=== PATIENT | female | born 1960 | race Caucasian/White ===

== ENCOUNTER 2019-10-03 10:37 | Outpatient (CLI) | payer OTHER, MEDICARE, SELFPAY ==
[2019-10-03 10:54] LABS: Basophils Absolute Auto 0.04 K/mm3 (0.00-0.10); Basophils Percent Auto 0.6 % (0.0-1.0); Eosinophils Percent Auto 1.5 % (1.0-6.0); Hemoglobin 15.1 g/dL (12.0-15.0); Immature Granulocyte Absolute 0.02 K/mm3 (0.00-0.00); Immature Granulocyte Percent A 0.3 % (0.0-0.0); Lymphocytes Absolute Auto 1.74 K/mm3 (1.10-4.50); Lymphocytes Percent Auto 26.7 % (18.0-42.0); Mean Corpuscular HGB Conc 33.6 g/dL (32.0-36.0); Mean Corpuscular Hemoglobin 35.3 pg (27.0-31.0); Mean Corpuscular Volume 105.1 fL (78.0-102.0); Mean Platelet Volume 9.3 fl (9.2-11.8); Monocytes Absolute Auto 0.43 K/mm3 (0.10-0.90); Monocytes Percent Auto 6.6 % (2.0-11.0); Neutrophils Absolute Auto 4.2 K/mm3 (1.7-7.2); Neutrophils Percent Auto 64.3 % (50.0-70.0); Platelet Count Result 246 K/mm3 (150-420); Red Blood Count 4.28 M/mm3 (4.20-5.40); Red Cell Distribution Width 13.1 % (11.6-14.4); White Blood Count 6.5 K/mm3 (4.8-10.8)
[2019-10-03 13:35] LABS: Anion Gap 10.7 mmol/L (7-16); Blood Urea Nitrogen 7 mg/dL (7-18); Carbon Dioxide 31 mmol/L (21-32); Chloride 101 mmol/L (98-108); Estimated Glomerular Filt Rate > 60; Glucose 76 mg/dL (70-99); Osmolality Calculated 283 mOsm/kg (285-295); Potassium 4.7 mmol/L (3.5-5.1); Sodium 138 mmol/L (136-145)
[2019-10-03 13:36] LABS: Alanine Aminotransferase 13 U/L (14-59); Alkaline Phosphatase 120 U/L (46-116); Aspartate Amino Transferase 13 U/L (15-37); Bilirubin,Total 0.5 mg/dL (0.00-1.00); Calcium 9.2 mg/dL (8.5-10.1); Cholesterol 189 mg/dL (0-200); HDL Direct 42 mg/dL (40-60); LDL Cholesterol Calculated 110 mg/dL (<130); Thyroid Stimulating Hormone 0.77 uIU/mL (0.36-3.74); Total Protein 7.6 g/dL (6.4-8.2); Triglycerides 183 mg/dL (0-150)
[2019-10-04 11:39] LABS: Add Urine Microscopic? YES; Appearance Urine Clear (Clear); Bilirubin Urine Negative (Negative); Blood Urine Negative (Negative); Color Urine Yellow (Yellow); Glucose Urine UA Negative (Negative); Ketones Urine Negative (Negative); Leukocyte Esterase Ur 1+ (Negative); Nitrate Urine Negative (Negative); Protein Urine Negative (Negative); Specific Grav Ur 1.015 (1.010-1.020); Urobilinogen Urine 0.2 mg/dL (0.2-1.0)
[2019-10-04 11:48] LABS: RBC Urine 0-2 /hpf (0-2)
[2019-10-04 11:49] LABS: Calcium Oxalate Crystals Urine Present /hpf; Squamous Epithelial Cell Urine Rare /hpf (Few)
[2019-10-04 11:50] LABS: Bacteria Urine Trace /hpf
== END 2019-10-03 10:38 | disposition home or self-care (01) ==
PROVIDERS: PCP Internal Medicine; Visit Provider Internal Medicine
DX: E78.5 Hyperlipidemia, unspecified (principal); Z00.00 Encounter for general adult medical examination without abnormal findings
CPT/HCPCS: 36415; 80053; 80061; 81001; 84443; 85025

== ENCOUNTER 2020-02-27 16:16 | Outpatient (CLI) | payer OTHER, MEDICARE, SELFPAY ==
--- NOTE | ~2020-02-27 | XR_ITS ---
EXAMINATION: XR femur LT min 2V DATE: 02/27/2020 17:29 INDICATION: Left hip pain. TECHNIQUE: 2 views of left femur on 4 radiographs were obtained. COMPARISON: None. FINDINGS: Bone alignment is normal. No acute fracture. There is internal fixation of left femoral hea d and neck with 3 lag screws. Left femoral head demonstrates sclerosis and articular surface collapse . There is severe left hip osteoarthritis. Tubing overlies the pelvis. There is a filter in inferior vena cava. IMPRESSION: 1. Old left femoral neck fracture with internal fixation complicated by left femoral head osteonecros is. 2. Severe left hip osteoarthritis. Reviewed, dictated and finalized at location A. IMPRESSION: 1. Old left femoral neck fracture with internal fixation complicated by left fe moral head osteonecrosis. 2. Severe left hip osteoarthritis.
--- NOTE | ~2020-02-27 | XR_ITS ---
EXAMINATION: XR chest 2V DATE: 02/27/2020 17:26 INDICATION: Cough. Dysphagia. TECHNIQUE: Frontal and lateral views of the chest were obtained. COMPARISON: Chest single view 10/30/2016, chest CT 10/22/2016 FINDINGS: Calcified bilateral pulmonary nodules are consistent with old granulomatous disease. There are mild airspace opacities in left lower lung zone. No pleural effusion or pneumothorax. The heart s ize is normal. There is a ventriculoperitoneal shunt on the right. There is internal fixation of left humerus. IMPRESSION: 1. Mild airspace opacities in left lower lung zone, consistent with atelectasis versus pneumonia. Reviewed, dictated and finalized at location A.
--- NOTE | ~2020-02-27 | XR_ITS ---
EXAMINATION: XR femur RT min 2V DATE: 02/27/2020 17:26 INDICATION: Right hip pain. TECHNIQUE: 2 views of right femur on 4 radiographs were obtained. COMPARISON: Right hip radiographs 10/13/2016 FINDINGS: Bone alignment is normal. No acute fracture. There is internal fixation of proximal right f emur with antegrade intramedullary mayda and femoral head/neck screw. There is mild right hip osteoarth ritis. There is mild right knee osteoarthritis. No knee joint effusion. IMPRESSION: 1. Mild polyarticular osteoarthritis. Reviewed, dictated and finalized at location A.
--- NOTE | ~2020-02-27 | XR_ITS ---
EXAMINATION: XR pelvis 1-2V DATE: 02/27/2020 17:26 INDICATION: Bilateral hip pain. TECHNIQUE: An anteroposterior view of the pelvis was obtained. COMPARISON: CT abdomen and pelvis 10/14/2016 FINDINGS: There is an old healed fracture of proximal right femur with internal fixation with antegra de intramedullary mayda and femoral head/neck screw. Right femoral head is enlarged. There is mild righ t hip osteoarthritis. There is internal fixation of left femoral neck with 3 lag screws. Left femoral head demonstrates sclerosis and articular surface collapse, consistent with osteonecrosis. There is severe left hip osteoarthritis. Tubing overlies the pelvis. There is a filter in the inferior vena ca va. Stool distends the rectum. IMPRESSION: 1. Mild right hip osteoarthritis. 2. Osteonecrosis of left femoral head with severe left hip osteoarthritis. 3. Stool distends the rectum. Reviewed, dictated and finalized at location A.
[2020-02-27 16:54] LABS: Basophils Absolute Auto 0.02 K/mm3 (0.00-0.10); Basophils Percent Auto 0.1 % (0.0-1.0); Hemoglobin 15.7 g/dL (12.0-15.0); Immature Granulocyte Absolute 0.09 K/mm3 (0.00-0.00); Immature Granulocyte Percent A 0.6 % (0.0-0.0); Lymphocytes Absolute Auto 0.51 K/mm3 (1.10-4.50); Lymphocytes Percent Auto 3.6 % (18.0-42.0); Mean Corpuscular HGB Conc 33.4 g/dL (32.0-36.0); Mean Corpuscular Hemoglobin 36.4 pg (27.0-31.0); Mean Platelet Volume 10.8 fl (9.2-11.8); Monocytes Absolute Auto 0.75 K/mm3 (0.10-0.90); Monocytes Percent Auto 5.3 % (2.0-11.0); Neutrophils Absolute Auto 12.9 K/mm3 (1.7-7.2); Neutrophils Percent Auto 90.4 % (50.0-70.0); Nucleated Red Blood Cells Absolute Auto 0.07 K/mm3 (0.00-0.00); Nucleated Red Blood Cells Perc 0.5 % (0-0.0); Platelet Count Result 255 K/mm3 (150-420); Red Blood Count 4.31 M/mm3 (4.20-5.40); Red Cell Distribution Width 14.8 % (11.6-14.4); White Blood Count 14.2 K/mm3 (4.8-10.8)
[2020-02-27 17:24] LABS: Alanine Aminotransferase 65 U/L (14-59); Albumin Level 3.8 g/dL (3.4-5.0); Alkaline Phosphatase 102 U/L (46-116); Aspartate Amino Transferase 98 U/L (15-37); Bilirubin,Total 2.2 mg/dL (0.00-1.00); Blood Urea Nitrogen 76 mg/dL (7-18); CRP 2.6 mg/dL (0.0-0.9); Calcium 10.3 mg/dL (8.5-10.1); Carbon Dioxide 26 mmol/L (21-32); Estimated Glomerular Filt Rate 23; Free T3 1.43 pg/mL (2.18-3.98); Free T4 Free Thyroxine 0.78 ng/dL (0.76-1.46); Glucose 149 mg/dL (70-99); Magnesium 2.8 mg/dL (1.8-2.4); Phosphorus 3.6 mg/dL (2.6-4.7); Thyroid Stimulating Hormone 1.93 uIU/mL (0.36-3.74); Total Protein 7.5 g/dL (6.4-8.2)
[2020-02-27 17:25] LABS: Anion Gap 19.7 mmol/L (7-16); Chloride 112 mmol/L (98-108); Osmolality Calculated 343 mOsm/kg (285-295); Potassium 3.7 mmol/L (3.5-5.1); Sodium 154 mmol/L (136-145)
[2020-02-28 10:54] LABS: Add Urine Microscopic? YES; Appearance Urine Clear (Clear); Bilirubin Urine 2+ (Negative); Blood Urine Negative (Negative); Color Urine Amber (Yellow); Glucose Urine UA Negative (Negative); Ketones Urine Trace (Negative); Leukocyte Esterase Ur 2+ (Negative); Nitrate Urine Negative (Negative); Protein Urine 1+ (Negative); pH Urine 5.5 (5.0-8.0)
[2020-02-28 11:01] LABS: Bacteria Urine 1+ /hpf; RBC Urine None seen /hpf (0-2); Squamous Epithelial Cell Urine Few /hpf (Few); WBC Urine 16-20 /hpf (0-3)
== END 2020-02-27 16:17 | disposition home or self-care (01) ==
LOC: CHSLAB 16:19
PROVIDERS: PCP Internal Medicine; Visit Provider Internal Medicine
DX: B37.9 Candidiasis, unspecified (principal); R13.10 Dysphagia, unspecified; R05 Cough; M79.605 Pain in left leg; M79.604 Pain in right leg
CPT/HCPCS: 36415; 71046; 72170; 73552; 80053; 81001; 83735; 84100; 84439; 84443; 84481; 85025; 86140

== ENCOUNTER 2020-02-28 14:32 | Inpatient (IN) | payer OTHER, MEDICARE, SELFPAY ==
--- NOTE | ~2020-02-28 | CT_ITS ---
EXAMINATION: CT chest abdomen pelvis wo con DATE: 02/28/2020 19:59 INDICATION: Shortness of breath. Weakness and nausea. TECHNIQUE: Computed tomography (CT) of the chest, abdomen, and pelvis was performed without intraveno us contrast. Automated exposure control and iterative reconstruction technique were employed. The dos e-length product was 253.78 mGy-cm. COMPARISON: Chest CT 10/22/2016, CT abdomen and pelvis 10/14/2016 FINDINGS: CHEST CT: There is mild emphysema. There are groundglass opacities in anterior segment right upper lobe and per ipheral right middle lobe and right lower lobe. There are patchy groundglass opacities in left upper lobe associated with interstitial opacities. There are airspace and groundglass opacities in lingula. There are groundglass opacities, centrilobular nodules, and tree-in-bud opacities in basilar left lo wer lobe. No pleural effusion. A calcified right lung nodule is consistent with old granulomatous dis ease. The heart size is normal. There are coronary artery calcifications. No pericardial effusion. Th ere is mild mediastinal lymphadenopathy, likely reactive. There is mild chronic anterior wedging of m ultiple thoracic vertebral bodies. ABDOMEN/PELVIS CT: There is diffuse hepatic steatosis. The gallbladder is normal in size and contains high attenuation m aterial that may be sludge or stones. The spleen, pancreas, adrenal glands, and right kidney are norm al. There is a 9 mm hyperdense mass in left kidney. There is no urolithiasis. There is a filter in th e infrarenal inferior vena cava. There is a fusiform aneurysm of infrarenal aorta measuring 3.4 cm. S tool distends the rectum. There is a ventriculoperitoneal shunt with tip in left abdomen. There is tr iman ascites. There are no pathologically enlarged lymph nodes. There is an old healed fracture of rig ht femoral neck with internal fixation. There is an old healed fracture of left femoral neck with int ernal fixation complicated by left femoral head osteonecrosis, articular surface collapse, and severe left hip osteoarthritis. There is a chronic burst fracture of L4. IMPRESSION: 1. Multifocal pneumonia, worst in left lower lobe. 2. Mild emphysema. 3. 3.4 cm fusiform infrarenal aortic aneurysm. 4. Diffuse hepatic steatosis. 5. Stool distends the rectum. 6. 9 mm hyperdense mass in left kidney, which may be a hemorrhagic cyst or less likely a solid neopla sm. Consider abdomen CT without and with contrast in 6 months. Reviewed, dictated and finalized at location A. IMPRESSION: 1. Multifocal pneumonia, worst in left lower lobe. 2. Mild emphysema. 3. 3.4 cm fusiform infrarenal aortic aneurysm. 4. Diffuse hepatic steatosis. 5. Stool distends the rectum. 6. 9 mm hyperdense mass in left kidney, which may be a hemorrhagic cyst or less likely a solid neoplasm. Consider abdomen CT without and with contrast in 6 mo nths.
--- NOTE | ~2020-02-28 | XR_ITS ---
EXAMINATION: XR hip LT 1V INDICATION: Left hip pain TECHNIQUE: A single AP view of the left hip is obtained. COMPARISON: 02/27/2020 FINDINGS: Again seen are three lag screws in the femoral neck. There is osteonecrosis of the femoral head. Severe left hip osteoarthritis is again noted. There is no fracture. Phleboliths are noted in t he pelvis. Catheter tubing coils in the pelvis. An IVC filter is noted. IMPRESSION: 1. Severe left hip osteoarthritis and osteonecrosis of the left femoral head without acute osseous ab normality. Reviewed, dictated and finalized at location A. IMPRESSION: 1. Severe left hip osteoarthritis and osteonecrosis of the left femoral head wi thout acute osseous abnormality.
--- NOTE | ~2020-02-28 | CT_ITS ---
EXAMINATION: CT brain wo con DATE: 02/28/2020 20:00 INDICATION: Cerebral aneurysm. Weakness. TECHNIQUE: Computed tomography (CT) of the head was performed without intravenous contrast. The mA wa s adjusted according to patient size. Iterative reconstruction technique was employed. The dose-lengt h product was 605.33 mGy-cm. COMPARISON: Head CT 10/15/2016 FINDINGS: There is a small old infarct in left cerebellum. There is chronic encephalomalacia in left frontal and temporal lobes and left thalamus. There are areas of chronic encephalomalacia involving r ight frontal lobe, frontoparietal region, left frontal lobe, left parietal lobe, and left occipital l obe. There is a right occipital ventriculostomy catheter with tip in body of right lateral ventricle with chronic encephalomalacia along the catheter tract. 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 There is no intracranial hemorrhage, acute infarction, or abnormal intracranial mass lesion . There is ex vacuo dilatation of the lateral ventricles. There is mucosal thickening in the paranasa l sinuses, worst in right maxillary sinus where there is thickening and sclerosis of the sinus neri, consistent with chronic sinusitis. The orbits are normal. There is a trace left mastoid effusion. Th ere are changes of left-sided craniotomy with aneurysm clip in left sylvian fissure. IMPRESSION: 1. Multifocal chronic encephalomalacia in the brain. 2. Ventriculostomy tip in right lateral ventricle. Ventricles unchanged in size. Reviewed, dictated and finalized at location A. IMPRESSION: 1. Multifocal chronic encephalomalacia in the brain. 2. Ventriculostomy tip in right lateral ventricle. Ventricles unchanged in size .
--- NOTE | ~2020-02-28 | XR_ITS ---
EXAMINATION: XR chest 1V portable DATE: 03/01/2020 08:40 INDICATION: Shortness of breath. TECHNIQUE: A single frontal view of the chest was obtained. COMPARISON: Chest 2 views 02/27/2020, chest CT 02/28/2020 FINDINGS: The lungs are hyperexpanded with lucencies, consistent with emphysema. There are airspace o pacities at the lung bases. No pleural effusion or pneumothorax. The heart size is normal. A ventricu loperitoneal shunt is noted. There is internal fixation of left humerus. IMPRESSION: 1. Airspace opacities at the lung bases, consistent with atelectasis versus pneumonia. 2. Emphysema. Reviewed, dictated and finalized at location A. IMPRESSION: 1. Airspace opacities at the lung bases, consistent with atelectasis versus pne umonia. 2. Emphysema.
--- NOTE | 2020-02-28 14:38 | ECG_ITS ---
Measurements Intervals [place] Rate: 82 P: 78 NH: 117 QRS: -43 QRSD: 94 T: -57 QT: 394 QTc: 461 Interpretive Statements SINUS RHYTHM WITH SHORT [place] INTERVAL LEFT AXIS DEVIATION LEFT VENTRICULAR HYPERTROPHY AND ST-T CHANGE BORDERLINE T WAVE ABNORMALITY- DIFFUSE LEADS BORDERLINE ECG Electronically Signed On 03-01-2020 7:43:14 CDT by Eyad Shelton D.O.
[2020-02-28 14:45] VITALS: BP 115/78; PULSE 106; RESP 16; TEMP 36.9; O2SAT 95
[2020-02-28 15:00] VITALS: RESP 18
--- NOTE | 2020-02-28 15:10 | PC.NURSE ---
BANANA BAG IV ORDERED BY ERP, VERBALIZED HE WOULD LIKE IT AT BOLUS RATE, MISENTERED RATE. VIDYA ESPINOZA PRESENT. THIS RN AGAIN CONFIRMED ERP WANTS BANANA BAG AT BOLUS RATED 999 ML/HR.
--- NOTE | 2020-02-28 15:12 | PC.NURSE ---
FOLIC ACID IVJ NOT AVAILABLE IN ED FOR BANANA BAG ORDER. ERP MADE AWARE. 1 MG FOLIC ACID PO THEN ORDERED BY ERP. MELISSA, INSTRUCTOR BALLROOM DANCING, NOTIFIED (NEEDED FROM PHARMACY). IN ADDITION, RN CONFIRMED THAT ERP DOES NOT WANT MAGNESIUM IN BANANA BAG DUE TO HYPERMAGNESIA LAB VALUE ON 02/27/20, ERP CONFIRMED HE DOES NOT WANT MAGNESIUM IN BANANA BAG.
[2020-02-28] MEDS: FOLIC ACID 1 MG TABLET PO (15:20)
[2020-02-28] MEDS: SODIUM CHLORIDE 0.9% IV 1,000 ML 999 ML IV CONT (15:51)
[2020-02-28 15:52] LABS: Hematocrit 35.9 % (35.0-49.0); Hemoglobin 11.6 g/dL (12.0-15.0); Mean Corpuscular HGB Conc 32.3 g/dL (32.0-36.0); Mean Corpuscular Hemoglobin 36.3 pg (27.0-31.0); Mean Corpuscular Volume 112.2 fL (78.0-102.0); Mean Platelet Volume 10.9 fl (9.2-11.8); Platelet Count Result 156 K/mm3 (150-420); White Blood Count 9.4 K/mm3 (4.8-10.8)
[2020-02-28 16:08] LABS: BNP 110 pg/mL (0-100)
[2020-02-28 16:09] LABS: Alanine Aminotransferase 48 U/L (14-59); Albumin Level 2.4 g/dL (3.4-5.0); Alkaline Phosphatase 74 U/L (46-116); Anion Gap 13.2 mmol/L (7-16); Aspartate Amino Transferase 76 U/L (15-37); Bilirubin,Total 1.5 mg/dL (0.00-1.00); Blood Urea Nitrogen 77 mg/dL (7-18); CRP 4.5 mg/dL (0.0-0.9); Calcium 8.3 mg/dL (8.5-10.1); Carbon Dioxide 25 mmol/L (21-32); Chloride 118 mmol/L (98-108); Creatine Kinase 50 U/L (26-192); Estimated CRCL calculation 13 ml/min; Estimated Glomerular Filt Rate 25; Lipase 300 U/L (73-393); Magnesium 2.5 mg/dL (1.8-2.4); Phosphorus 3.3 mg/dL (2.6-4.7); Potassium 3.2 mmol/L (3.5-5.1); Sodium 153 mmol/L (136-145); Total Protein 5.6 g/dL (6.4-8.2)
[2020-02-28 16:12] LABS: Ammonia < 10 umol/L (11-32); Glucose 577 mg/dL (70-99); Osmolality Calculated 366 mOsm/kg (285-295)
[2020-02-28 16:14] LABS: Troponin I 0.11 ng/mL (0.00-0.056)
[2020-02-28 16:24] LABS: Influenza Control Valid (Valid)
[2020-02-28 16:36] LABS: INR 1.4; Partial Thromboplastin Time 24.7 SEC (22.3-31.6); Prothrombin Time 14.1 Seconds (9.64-11.0)
[2020-02-28 16:43] LABS: Salicylate 4.3 mg/dL (2.8-20.0)
[2020-02-28 16:44] LABS: Erythrocyte Sedimentation Rate 20 mm/hr (0-20)
[2020-02-28 16:45] LABS: Acetaminophen 0 ug/mL (10-30); Ethanol < 3 mg/dL (0-6)
[2020-02-28 16:53] LABS: Thyroid Stimulating Hormone 0.84 uIU/mL (0.36-3.74)
[2020-02-28 17:24] LABS: Add Urine Microscopic? YES; Appearance Urine Sl Cloudy (Clear); Bilirubin Urine 1+ (Negative); Blood Urine Negative (Negative); Color Urine Yellow (Yellow); Glucose Urine UA 2+ (Negative); Ketones Urine Trace (Negative); Leukocyte Esterase Ur Negative LEU/UL (Negative); Nitrate Urine Negative (Negative); Protein Urine Trace (Negative); pH Urine 5.5 (5.0-8.0)
[2020-02-28] MEDS: KCL 20 MEQ/SW 100 ML 100 ML 50 MEQ IVPB (17:47)
--- NOTE | 2020-02-28 18:10 | ED.GENADULT ---
HPI - General Adult General Chief complaint: Recheck/Abnormal Lab/Rx Stated complaint: 59 Yo Female w/ recent h/o FTT w/ weight loss was seen in clinic by Dr Gonzalez on 02/26. He ordered bloodwork and initiated outpt w/u on pt for FTT and Weight loss w/ poor appetite. Upon receiving results of bloodwork he instructed patient to come into ED for eval. Patient is a poor historian who doesn't offer much in terms of history. Her states she has not been eating for 1-2 months and admits she has likely been pocketing her foot. Patient w/ a known h.o SAH approx 10 years ago also suffers from Arthritis of her hips. Related Data Home Medications Medication Instructions Recorded Confirmed fluconazole 100 mg PO DAILY 02/28/20 02/28/20 Allergies Allergy/AdvReac Type Severity Reaction Status Date / Time morphine Allergy Unknown Verified 10/13/16 19:33 Review of Systems Review of Systems: ROS unobtainable: Yes unobtainable due to mental status Constitutional: Constitutional: Reports no additional constitutional complaints Eyes: Eyes: Reports as per HPI ENT: Reports system reviewed and no additional complaints, except as documented Cardiovascular: Cardiovascular: Reports no additional cardiovascular complaints Respiratory: Respiratory: Reports no additional respiratory complaints Gastrointestinal: Gastrointestinal: Reports no additional gastrointestinal complaints Genitourinary: Genitourinary: Reports no additional female genitourinary complaints Musculoskeletal: Musculoskeletal: Reports no additional musculoskeletal complaints Integumentary/Breasts: Skin/Breast: Reports system reviewed and no additional complaints, except as docu Neurologic: Reports system reviewed and no additional complaints, except as documented Psychiatric: Psychiatric: Reports no additional psychiatric complaints Endocrine: Endocrine: Reports no additional endocrine complaints Hematologic/Lymphatic: Hematologic/Lymphatic: Reports no additional hematologic/lymphatic complaints [facility] Past Medical History Medical History (Updated 02/28/20 @ 21:17 by Johan Stafford MD) Aneurysm of anterior cerebral artery Intracranial aneurysm Intracranial hemorrhage of aneurysm Surgical History Surgical History (Updated 02/28/20 @ 18:22 by Johan Stafford MD) Intracranial hemorrhage, spontaneous subarachnoid, due to cerebral aneurysm, remote, resolved Exam Const: General: no acute distress, alert and ill appearing Nutritional Appearance: thin (cachetic) HENMT: Head: normal to inspection Mouth: Yes dry mucous membranes and Yes Abnormal oral and palatal mucosa present (thrush) white patches Other: sunken orbits Eyes: Conjunctivae: conjunctivae normal Pupils: Equal, round and reactive pupils present Neck: Neck: normal visual inspection Chest: Chest palpation & inspection: normal inspection of the chest Resp: Effort & Inspection: normal respiratory effort Cardio: Rate: regular rate Rhythm: regular rhythm GI: GI Palp: Yes Soft to palpation, No Tenderness to palpation present (GI) and No Guarding due to palpation present (GI) : General: Yes no CVA tenderness Skin: General skin exam: normal color Neuro: General: patient oriented x3, moves all extremities, no focal motor deficits and CN's II-XI intact bilaterally Extrem: General: normal to inspection Psych: Affect: Sad affect present Course Course Emergency Course: Unable to PanCT w/ contrast sec to low GFR (Which is improving w/ IVF. Will start with PanCT W/O Contrast, admit for FTT, ARF and continue workup inhouse. D/W Dr Gonzalez who agrees with plan. Vital Signs Vital signs: Vital Signs Temperature 98.4 F 02/28/20 14:45 Pulse Rate 106 H 02/28/20 14:45 Respiratory Rate 16 02/28/20 14:45 Blood Pressure 115/78 02/28/20 14:45 Pulse Oximetry 95 02/28/20 14:45 Temperature 98.4 F 02/28/20 14:45 Pulse Rate 106 H 02/28/20 14:45 Respiratory Rate
[2020-02-28 18:16] VITALS: BP 115/78
[2020-02-28 18:16] LABS: Bacteria Urine None seen /hpf; Mucus Urine None seen /lpf; RBC Urine None seen /hpf (0-2); Squamous Epithelial Cell Urine Rare /hpf (Few); WBC Urine None seen /hpf (0-3)
--- NOTE | 2020-02-28 18:23 | PC.NURSE ---
AT 1600 RN INTERMITTENTLY CATHETERIZED PT. SHE HAS BEEN UNABLE TO VOID FOR AT URINE SPECIMINE. PT. TOLERATE WELL AND RN USED AN 8 PORTUGUESE CATHETER DUE TO THE FACT THAT PATIENT IS VERY FRAIL AND SMALL. URINE WAS OBTAINED AND WILL BE SENT TO THE LAB.
[2020-02-28 18:30] VITALS: BP 137/92; PULSE 83; RESP 16; O2SAT 99
[2020-02-28] MEDS: SODIUM CHLORIDE 0.9% IV 1,000 ML 150 ML IV CONT (18:30)
[2020-02-28 19:14] LABS: Anion Gap 15.6 mmol/L (7-16); Blood Urea Nitrogen 66 mg/dL (7-18); Calcium 8.5 mg/dL (8.5-10.1); Carbon Dioxide 19 mmol/L (21-32); Chloride 124 mmol/L (98-108); Estimated CRCL calculation 14 ml/min; Estimated Glomerular Filt Rate 28; Glucose 175 mg/dL (70-99); Osmolality Calculated 343 mOsm/kg (285-295); Potassium 3.6 mmol/L (3.5-5.1); Sodium 155 mmol/L (136-145)
[2020-02-28 19:52] LABS: Amphetamine Screen Urine Negative (Negative); Barbiturate Screen Urine Negative (Negative); Benzodiazepines Screen Urine Negative (Negative); Cannabinoid Screen Urine Positive (Negative); Cocaine Screen Urine Negative (Negative); Methadone Screen Urine Negative (Negative); Opiate Screen Urine Negative (Negative); Phencyclidine Screen Urine Negative (Negative)
[2020-02-28 22:54] VITALS: BP 125/82; PULSE 76; TEMP 36.4
[2020-02-28 23:40] VITALS: BP 125/87; PULSE 80; RESP 18; TEMP 36.5; O2SAT 100
[2020-02-28] MEDS: DEXTROSE 5%/LACTATED RINGERS 1,000 ML 100 ML IV CONT (23:42)
--- NOTE | 2020-02-28 23:45 | ADMGEN ---
This patient, Shawnee Vides, was admitted to 2nd Floor Room 205-2. Patient/family oriented to hospital policies and general routines including ID bracelet, bed and alarms, visiting hours, pain management, procedures, bathroom and other care routines, personal items, smoking policy, room service/diet, and visiting hours. Patient/Family are encouraged to report perceived risks to care and to ask questions if they do not understand what they are told or what they should do.
[2020-02-28 23:47] VITALS: BMI 12.8
--- NOTE | 2020-02-29 00:24 | PC.NURSE ---
Talked to Dr. Stafford about pain medication for pt. Orders received and noted.
[2020-02-29] MEDS: ACETAMINOPHEN/CODEINE ELIX 120-12 MG/5 ML UDC 10 ML PO ×2 (00:27→17:35)
[2020-02-29] MEDS: NICOTINE (*PBKC) 21 MG PATCH 1 PATCH TRANSDERM ×2 (00:45→20:55)
[2020-02-29 05:45] LABS: Hematocrit 34.4 % (35.0-49.0); Hemoglobin 11.1 g/dL (12.0-15.0); Mean Corpuscular HGB Conc 32.3 g/dL (32.0-36.0); Mean Corpuscular Hemoglobin 35.8 pg (27.0-31.0); Mean Platelet Volume 10.9 fl (9.2-11.8); Platelet Count Result 132 K/mm3 (150-420); Red Cell Distribution Width 15.5 % (11.6-14.4)
[2020-02-29 05:59] LABS: INR 1.3; Prothrombin Time 13.2 Seconds (9.64-11.0)
[2020-02-29 06:14] LABS: Alanine Aminotransferase 53 U/L (14-59); Albumin Level 2.2 g/dL (3.4-5.0); Alkaline Phosphatase 68 U/L (46-116); Anion Gap 12.2 mmol/L (7-16); Aspartate Amino Transferase 76 U/L (15-37); Bilirubin,Total 1.4 mg/dL (0.00-1.00); Blood Urea Nitrogen 52 mg/dL (7-18); Calcium 8.1 mg/dL (8.5-10.1); Carbon Dioxide 23 mmol/L (21-32); Chloride 126 mmol/L (98-108); Estimated CRCL calculation 19 ml/min; Estimated Glomerular Filt Rate 36; Glucose 145 mg/dL (70-99); Osmolality Calculated 343 mOsm/kg (285-295); Potassium 3.2 mmol/L (3.5-5.1); Sodium 158 mmol/L (136-145); Total Protein 4.9 g/dL (6.4-8.2)
--- NOTE | 2020-02-29 07:34 | ECG_ITS ---
Measurements Intervals [place] Rate: 67 P: 85 [place]: 113 QRS: -45 QRSD: 98 T: 233 QT: 481 QTc: 511 Interpretive Statements SINUS RHYTHM WITH SINUS ARRHYTHMIA WITH SHORT [place] INTERVAL LEFT AXIS DEVIATION DELAYED PRECORDIAL R/S TRANSITION ST-T WAVE ABNORMALITY IN ANTEROLAT/INF LEADS- CONSIDER ISCHEMIA BASELINE ARTIFACT- I, II, III, AVR, AVL, AVF, V1-V6 ABNORMAL ECG Electronically Signed On 03-01-2020 7:44:55 CDT by Eyad Shelton D.O.
[2020-02-29 07:40] VITALS: BP 123/84; PULSE 67; RESP 18; TEMP 36.8; O2SAT 95
--- NOTE | 2020-02-29 07:50 | PC.NURSE ---
EKG completed, awaiting information from imaging to find out if can proceed with CT scans this am, patient requesting coffee, educated on procedure to be NPO until after scan has been done
[2020-02-29] MEDS: KCL 20 MEQ/SW 100 ML 100 ML 50 MEQ IVPB (08:23)
[2020-02-29] MEDS: DEXTROSE 5%/LACTATED RINGERS 1,000 ML 100 ML IV CONT (09:18)
[2020-02-29] MEDS: DOCUSATE SODIUM 100 MG CAPSULE PO (09:19)
[2020-02-29] MEDS: MEGESTROL ACETATE (*CHEMO) 40 MG TABLET PO ×4 (09:19→20:51)
[2020-02-29] MEDS: ENOXAPARIN 30 MG/0.3 ML SYRINGE SUB-Q (09:19)
--- NOTE | 2020-02-29 09:20 | PC.NURSE ---
Ativan given for anxiety, on the light almost constantly, no t wanting to be left alone, asking for coffee, has 2 cups at the bedside, CT scan cancelled at this time, wants saline lock removed, advised at this time it needs to stay in for use, checked site, no redness and flushes well
--- NOTE | 2020-02-29 09:49 | PC.NURSE ---
Ate only one spoonful of oatmeal, took sips of coffee only and managed to drink about 1/4 of her ensure with encouragement
--- NOTE | 2020-02-29 09:49 | PM.IMHP ---
H&P: HPI History of Present Illness Chief complaint: DR SENT PT FOR ABNORMAL LABS Narrative: Shawnee Vides is a 59 year old female white female that presented to [facility] ED after being notified by her primary care physician Dr. Gonzalez to report to the ED for evaluation due to abnormal labs. patient has a past medical history of aneurysm of anterior cerebral artery, intracranial aneurysm, intercranial hemorrhage of aneurysm, and smoker.According to patient's , for approximately 1 month patient has been pocketing her food or chewing it up and spitting it in a napkin. noted that patient has been having mouth pain in this could be the cause of her decrease in appetite. her also noted that her primary care physician prescribed her Flagyl with their last visit due to thrush. according to patient's they do have plans to consult surgery for a PEG tube placement in the near future. approximately 15 years ago when patient had an aneurysm she had a PEG tube placed that was reversed. He is hoping that they can replace the PEG to assist with her eating and to gain weight. Patient is aphasic due to her intracranial hemorrhage. he also noted that at some point she was on antidepressants for depression and also increased her appetite.. Patient is being admitted for failure to thrive, pneumonia and dehydration. patient's vital signs are 125/87, 80, 18, 97.7, 100% on room air. while in the ED patient's sodium was 153, potassium 3.2, BUN 77, creatinine 2.02, GFR 25 glucose 577 magnesium 2.5 total bilirubin 1.5 AST 76 troponin 0.11 CRP 4.5 her urine had a trace of protein glucose ketones bili and urobilinogen . She did test positive for cannabis HIV negative ,COVID pending. her CT of the abdomen and chest showed pneumonia with mouth emphysema and stool distending the rectum, a 9 mm mass on the left kidneys in the 3.4 cm aortic aneurysm. There was no new findings with a head CT. EKG indicate sinus rhythm with short MN intervals,strep culture pending. Patient denies SOB, CP, palpitation, extremity numbness, lightheadness, dizziness, constipation, diarrhea, chills or fever. patient is extremely anxious because her can't visit her due to her isolation for COVID-19 testing Review of Systems Review of Systems: ROS unobtainable: Yes unobtainable due to mental status PMFSH Past Medical History Medical History (Updated 02/29/20 @ 12:07 by DE Milligan) Aneurysm of anterior cerebral artery Intracranial aneurysm Intracranial hemorrhage of aneurysm Surgical History Surgical History (Updated 02/28/20 @ 18:22 by Johan Stafford MD) Intracranial hemorrhage, spontaneous subarachnoid, due to cerebral aneurysm, remote, resolved Social History Social History Smoking packs per day: 1 Smoking cigarettes per day: 20.0 Years smoked: 41 Smoking pack-years: 41.00 Smoking status: Current every day smoker Tobacco type: cigarettes Alcohol intake: never Substance use type: marijuana Last use: one time Gender identity (if verbalized by the patient): Female Spiritual care concerns: No Meds Home Medications and Allergies Home Medications Medication Instructions Recorded Confirmed Type fluconazole 100 mg PO DAILY 02/28/20 02/28/20 History Allergies Allergy/AdvReac Type Severity Reaction Status Date / Time morphine Allergy Unknown Verified 10/13/16 19:33 Vital Signs Vital Signs - 24 hr 02/28/20 14:45 02/28/20 15:00 02/28/20 18:16 Temperature 98.4 F Pulse Rate 106 H Respiratory Rate 16 18 Blood Pressure 115/78 115/78 Pulse Oximetry 95 02/28/20 18:30 02/28/20 22:54 02/28/20 23:40 Temperature 97.5 F L 97.7 F Pulse Rate 83 76 80 Respiratory Rate 16 18 Blood Pressure 137/92 H 125/82 125/87 Pulse Oximetry 99 100 02/29/20 07:40 Temperature 98.2 F Pulse Rate 67 Respiratory Rate 18 Blood Pressure 123/84 Pu
--- NOTE | 2020-02-29 10:30 | PC.NURSE ---
drowsy from ativan, arouses to voice but falls asleep quickly, mumbles words, fluids infusing, art patent and draining,
[2020-02-29 10:46] LABS: HIV 1 P24 AG Negative (Negative); HIV 1/2 AB Negative (Negative)
[2020-02-29 11:28] VITALS: PULSE 82
[2020-02-29 11:29] VITALS: BP 98/48; PULSE 82; RESP 18; TEMP 36.4; O2SAT 93
[2020-02-29] MEDS: PHARMACIST COMMUNICATION ORDER 1 EACH XX (12:03)
[2020-02-29] MEDS: NYSTATIN 100,000 UNITS/ML SUSP 5 ML ORAL.SUSP PO ×3 (12:04→20:51)
[2020-02-29] MEDS: DULoxetine HCL 20 MG CAPSULE.DR PO (12:04)
--- NOTE | 2020-02-29 12:38 | PC.NURSE ---
frequently on the light asking for coffee, coffee at the bedside, states wants new coffee, advised that coffee is still fresh from lunch and to try to finish it or attempt to drink that one first,
[2020-02-29] MEDS: SODIUM CHLORIDE 0.45% 1,000 ML 100 ML IV CONT (13:29)
--- NOTE | 2020-02-29 13:43 | PC.NURSE ---
top dentures removed and cleaned, oral care provided, dentures put back in, speaking clearer at this time, wants to go out to smoke, advised no smoking campus, wants to see her , advised she cannot see him due to covid test pending
--- NOTE | 2020-02-29 14:00 | PC.NURSE ---
Continues to ring on the light every 10-15 min, wanting a cigarette, wanting to go outside, and sometimes unable to understand what she is trying to say, doesn't want to be left alone, still drowsy and having some comunication issues due to dry mouth and dentures on top not fitting well, advised that she cannot go home due to irregular lab work, she is getting IV fluids to help correct this, educated on no smoking policy and that she has a nicotine patch on, continues to ask the same thing over and over after is has been answered,
--- NOTE | 2020-02-29 14:37 | PC.NURSE ---
Fluids infusing, art draining lakshmi urine, 150ml at this time, takes small sips of fluids as offered, not eating, still using call light frequently
--- NOTE | 2020-02-29 15:00 | PC.NURSE ---
Resting quietly, eyes closed, resp non labored, no change in telemetry, fluids infusing, art draining lakshmi urine
[2020-02-29 15:53] VITALS: BP 123/83; PULSE 80; PULSE 82; RESP 18; TEMP 36.1; O2SAT 93
--- NOTE | 2020-02-29 17:15 | PC.NURSE ---
Awake, took evening pill, ate 1/2 spoonful of mashpotato and stated im done drank 1 sip of ensure, im done will not attempt to eat or drink anything else, closed her eyes
--- NOTE | 2020-02-29 17:49 | PC.NURSE ---
tylenol with codeine given for pain in left hip, asking if she needs to be here, can the saline lock come out, advised that her spouse knows she is here for IVFs to try to get stronger so she can be evaluated for peg tube or feeding tube due to not eating at home and weight loss, advised needs to make an effort to try to eat and drink well here as to go home, still refuses to eat, will take sips of water, coffee and ensure at times
[2020-02-29 19:56] VITALS: PULSE 74
[2020-02-29] MEDS: BUDESONIDE/FORMOTEROL (*SP) 160-4.5 MCG 6 GM INH 2 PUFF INHALATION (20:51)
[2020-02-29] MEDS: SENNA/DOCUSATE SODIUM TABLET 1 TAB PO (20:51)
[2020-02-29] MEDS: MAGNES & ALUM HYD/SIMETH/DIPHENHYD/LIDOCAINE 119 ML MOUTHWASH BY MOUTH (20:54)
[2020-02-29 21:06] LABS: Troponin I 0.17 ng/mL (0.00-0.056)
--- NOTE | 2020-02-29 21:29 | PC.NURSE ---
MD notified that patient's current Troponin Level of 0.17. MD acknowledged with no new orders.
[2020-03-01] VITALS (8 sets, daily range): BP systolic 114–128; BP diastolic 84–86; PULSE 78–108; RESP 16–20; TEMP 36.8–37.1; O2SAT 57–97
[2020-03-01] MEDS: SODIUM CHLORIDE 0.45% 1,000 ML 100 ML IV CONT (00:07)
[2020-03-01] MEDS: ACETAMINOPHEN/CODEINE ELIX 120-12 MG/5 ML UDC 10 ML PO (00:08)
[2020-03-01] MEDS: MAGNES & ALUM HYD/SIMETH/DIPHENHYD/LIDOCAINE 119 ML MOUTHWASH BY MOUTH (05:29)
[2020-03-01] MEDS: BUDESONIDE/FORMOTEROL (*SP) 160-4.5 MCG 6 GM INH 2 PUFF INHALATION (05:30)
[2020-03-01 06:24] LABS: Hematocrit 45.4 % (35.0-49.0); Hemoglobin 14.1 g/dL (12.0-15.0); Immature Platelet Fraction Pct 5.5 % (1.0-7.0); Mean Corpuscular HGB Conc 31.1 g/dL (32.0-36.0); Mean Corpuscular Hemoglobin 35.9 pg (27.0-31.0); Mean Corpuscular Volume 115.5 fL (78.0-102.0); Mean Platelet Volume 11.7 fl (9.2-11.8); Platelet Count Result 145 K/mm3 (150-420); Red Blood Count 3.93 M/mm3 (4.20-5.40); Red Cell Distribution Width 15.9 % (11.6-14.4); White Blood Count 12.2 K/mm3 (4.8-10.8)
[2020-03-01 07:23] LABS: Alanine Aminotransferase 90 U/L (14-59); Albumin Level 2.5 g/dL (3.4-5.0); Alkaline Phosphatase 102 U/L (46-116); Aspartate Amino Transferase 114 U/L (15-37); Bilirubin Direct 0.7 mg/dL (0-0.2); Bilirubin Indirect 0.7 mg/dL (0-1.0); Bilirubin,Total 1.4 mg/dL (0.00-1.00); Blood Urea Nitrogen 36 mg/dL (7-18); Calcium 8.8 mg/dL (8.5-10.1); Carbon Dioxide 24 mmol/L (21-32); Estimated CRCL calculation 26 ml/min; Estimated Glomerular Filt Rate 53; GGT 89 U/L (5-55); Glucose 89 mg/dL (70-99); Iron 19 ug/dL (50-170); Magnesium 2.2 mg/dL (1.8-2.4); Percent Iron Saturation 12 % (12-57); Total Protein 6.1 g/dL (6.4-8.2)
--- NOTE | 2020-03-01 07:41 | P.PNCROSS_ITS ---
Event Note Event Note Event Note: On 02/29/20 for this patient encounter, I reviewed the HOUSE COORDINATOR or PA documentation, treatment plan, and medical decision making; and I had [id number] time with this patient.
--- NOTE | 2020-03-01 07:41 | PM.EVENT ---
Event Note Event Note Event Note: On 02/29/20 for this patient encounter, I reviewed the SOLAR SYSTEMS DESIGNER or PA documentation, treatment plan, and medical decision making; and I had [id number] time with this patient.
--- NOTE | 2020-03-01 08:25 | PC.NURSE ---
Patient spo2 46%RA. 31/2 liters o2 spo2 76%. Kb AUDITING CODER is aware.
[2020-03-01 08:50] LABS: Base Excess ABG -4.6 mmol/L (0-2); HCO3 ABG 19.7 mmol/L (23-29); Oxygen Content ABG 16.6 %vol (16.0-22.0); Oxygen Saturation ABG 89.1 % (95-97); Oxyhemoglobin 87.1 % (94-100); PCO2 ABG 34.3 mmHg (35-45); PO2 ABG 55.4 mmHg (80-90); Total Hemoglobin 13.6 g/dL; pH ABG 7.38 (7.35-7.45)
[2020-03-01 08:51] LABS: Ferritin > 1000 ng/mL (8-252)
[2020-03-01 08:53] LABS: Device NASAL CANNULA; Liters per Minute 3.5 LPM; Modified Allen's Test Pass; Site Drawn RIGHT RADIAL
[2020-03-01 08:53] LABS: Thyroid Stimulating Hormone Reflex 1.65 u/IU/mL (0.36-3.74)
[2020-03-01 09:13] LABS: CRP 19.9 mg/dL (0.0-0.9)
[2020-03-01 09:32] LABS: BNP 1020 pg/mL (0-100)
[2020-03-01 10:13] LABS: Lactic Acid 1.1 mmol/L (0.4-2.0)
[2020-03-01 10:20] LABS: Anion Gap 5.7 mmol/L (7-16); Chloride 124 mmol/L (98-107); Osmolality Calculated 317 mOsm/kg (285-295); Potassium 3.7 mmol/L (3.4-5.0); Sodium 150 mmol/L (137-145)
[2020-03-01] MEDS: ALBUTEROL SULFATE (*SP) INHALER 8 PUFF INHALATION (10:26)
[2020-03-01 10:41] LABS: HCO3 ABG 21.4 mmol/L (23-29); Oxygen Content ABG 17.1 %vol (16.0-22.0); Oxygen Saturation ABG 90.7 % (95-97); Oxyhemoglobin 89.3 % (94-100); PCO2 ABG 44.6 mmHg (35-45); PO2 ABG 64.2 mmHg (80-90); Total Hemoglobin 13.6 g/dL
[2020-03-01 10:43] LABS: Fractional Inspired Oxygen 60 %; Modified Allen's Test Pass; Site Drawn RIGHT RADIAL
[2020-03-01 10:46] LABS: Device BIPAP; Expiratory Pressure 7 cmH2O; Inspiratory Pressure 12 cmH2O
[2020-03-01 11:08] LABS: D Dimer 1.08 mg/L (0.19-0.50)
--- NOTE | 2020-03-01 11:33 | PC.NURSE ---
Report called to Cecilia as accepting nurse discharging 2 patients.
--- NOTE | 2020-03-01 11:34 | P.DS_ITS ---
DS: Admitting Diagnosis Admitting Diagnosis Admitting Diagnosis: Adult failure to thrive DS: Discharge Diagnosis Discharge Diagnosis (1) Adult failure to thrive: Code(s): R62.7 - Adult failure to thrive Status: Acute Assessment and Plan: * possibly secondary to thrush * patient started on p.o. Flagyl and nystatin * patient diet adjusted to soft diet due to lost teeth * patient will go to [facility] in the future to have PEG placed * also started Magic wash * Megace added to increased appetite * Cymbalta also added to increased appetite and treat depression (2) Acute renal failure: Qualifiers: Acute renal failure type: unspecified Qualified Code(s): N17.9 - Acute kidney failure, unspecified Code(s): N17.9 - Acute kidney failure, unspecified Status: Acute Assessment and Plan: * possibly secondary to dehydration on admission creatinine 2.02 currently 1.50 improving baseline creatinine appears to be 0.86 * continue IV hydration for fluid challenge * avoid nephrotoxins agents * CMP in a.m. (3) Acute dehydration: Code(s): E86.0 - Dehydration Status: Acute Assessment and Plan: * secondary to failure to thrive * will continue to hydrate patient (4) Community acquired bacterial pneumonia: Code(s): J15.9 - Unspecified bacterial pneumonia Status: Acute Assessment and Plan: * CT indicatesMultifocal pneumonia, worst in left lower lobe. * continue Levaquin day 1 * no blood cultures collected before the use antibiotics (5) Electrolyte imbalance: Code(s): E87.8 - Other disorders of electrolyte and fluid balance, not elsewhere classified Status: Acute Assessment and Plan: * possibly secondary to dehydration ,failure to thrive and malnutrition * sodium 158 potassium 3.2 chloride 126 * replace with supplement * CMP in a.m. (6) Elevated liver enzymes: Code(s): R74.8 - Abnormal levels of other serum enzymes Status: Acute Assessment and Plan: * possibly secondary to dehydration * elevated AST 76 and total bilirubin 1.4 * hepatic panel pending (7) Elevated troponin: Code(s): R79.89 - Other specified abnormal findings of blood chemistry Status: Acute Assessment and Plan: * elevated troponin 1st troponin 0.11 2nd troponin 0.50 will repeat in 3 hours * EKG sinus rhythm with p.r.n. intervals * continue telemetry (8) COVID-19 ruled out: Code(s): Z03.818 - Encounter for observation for suspected exposure to other biological agents ruled out Status: Acute Assessment and Plan: * pending (9) Cannabis use disorder, mild, abuse: Code(s): F12.10 - Cannabis abuse, uncomplicated Status: Acute Assessment and Plan: * patient tested positive for cannabis use * educated on sensation (10) Depression: Code(s): F32.9 - Major depressive disorder, single episode, unspecified Status: Acute Assessment and Plan: * according to patient's patient was previously on antidepressants * started Cymbalta at a low-dose (11) Emphysema (subcutaneous) (surgical) resulting from a procedure: Code(s): T81.82XA - Emphysema (subcutaneous) resulting from a procedure, initial encounter Status: Acute Assessment and Plan: * stable * patient is a smoker * will start nebulizers * p.r.n. oxygen as needed (12) Aortic aneurysm: Code(s): I71.9 - Aortic aneurysm of unspe
--- NOTE | 2020-03-01 11:34 | PM.DS ---
DS: Admitting Diagnosis Admitting Diagnosis Admitting Diagnosis: Adult failure to thrive DS: Discharge Diagnosis Discharge Diagnosis (1) Adult failure to thrive: Code(s): R62.7 - Adult failure to thrive Status: Acute Assessment and Plan: possibly secondary to thrush patient started on p.o. Flagyl and nystatin patient diet adjusted to soft diet due to lost teeth patient will go to [facility] in the future to have PEG placed also started Magic wash Megace added to increased appetite Cymbalta also added to increased appetite and treat depression (2) Acute renal failure: Qualifiers: Acute renal failure type: unspecified Qualified Code(s): N17.9 - Acute kidney failure, unspecified Code(s): N17.9 - Acute kidney failure, unspecified Status: Acute Assessment and Plan: possibly secondary to dehydration on admission creatinine 2.02 currently 1.50 improving baseline creatinine appears to be 0.86 continue IV hydration for fluid challenge avoid nephrotoxins agents CMP in a.m. (3) Acute dehydration: Code(s): E86.0 - Dehydration Status: Acute Assessment and Plan: secondary to failure to thrive will continue to hydrate patient (4) Community acquired bacterial pneumonia: Code(s): J15.9 - Unspecified bacterial pneumonia Status: Acute Assessment and Plan: CT indicatesMultifocal pneumonia, worst in left lower lobe. continue Levaquin day 1 no blood cultures collected before the use antibiotics (5) Electrolyte imbalance: Code(s): E87.8 - Other disorders of electrolyte and fluid balance, not elsewhere classified Status: Acute Assessment and Plan: possibly secondary to dehydration ,failure to thrive and malnutrition sodium 158 potassium 3.2 chloride 126 replace with supplement CMP in a.m. (6) Elevated liver enzymes: Code(s): R74.8 - Abnormal levels of other serum enzymes Status: Acute Assessment and Plan: possibly secondary to dehydration elevated AST 76 and total bilirubin 1.4 hepatic panel pending (7) Elevated troponin: Code(s): R79.89 - Other specified abnormal findings of blood chemistry Status: Acute Assessment and Plan: elevated troponin 1st troponin 0.11 2nd troponin 0.50 will repeat in 3 hours EKG sinus rhythm with p.r.n. intervals continue telemetry (8) COVID-19 ruled out: Code(s): Z03.818 - Encounter for observation for suspected exposure to other biological agents ruled out Status: Acute Assessment and Plan: pending (9) Cannabis use disorder, mild, abuse: Code(s): F12.10 - Cannabis abuse, uncomplicated Status: Acute Assessment and Plan: patient tested positive for cannabis use educated on sensation (10) Depression: Code(s): F32.9 - Major depressive disorder, single episode, unspecified Status: Acute Assessment and Plan: according to patient's patient was previously on antidepressants started Cymbalta at a low-dose (11) Emphysema (subcutaneous) (surgical) resulting from a procedure: Code(s): T81.82XA - Emphysema (subcutaneous) resulting from a procedure, initial encounter Status: Acute Assessment and Plan: stable patient is a smoker will start nebulizers p.r.n. oxygen as needed (12) Aortic aneurysm: Code(s): I71.9 - Aortic aneurysm of unspecified site, without rupture Status: Acute Assessment and Plan: history of aneurysm with rupture will follow-up with her regular doctor. (13) Constipated: Code(s): K59.00 - Constipation, unspecified Status: Acute Assessment and Plan: CT indicatesStool distends the rectum. started the patient on stool softeners with laxatives schedule and p.r.n. laxatives 6 (14) Kidney mass: Code(s): N28.89 - Other specified
[2020-03-01 14:26] LABS: SARS-CoV-2 RNA PCR Negative
[2020-03-03 03:43] LABS: CA-125 6 U/mL (<35)
[2020-03-03 16:07] LABS: CA 15-3 15 U/mL (<32); CA 27.29 25 U/mL (<38)
[2020-03-04 04:18] LABS: Hepatitis B Surface Antibody Nonreactive (Nonreactive)
[2020-03-04 06:20] LABS: CA 19-9 23 U/mL (<34)
[2020-03-04 11:14] LABS: Mitochondrial (M2) Ab (IgG) <=20.0 U (<=20.0)
[2020-03-04 11:20] LABS: Actin Antibody (IgG) <20 U (<20)
[2020-03-04 11:57] LABS: Ceruloplasmin 23 mg/dL (18-53)
[2020-03-05 04:11] LABS: Hepatitis A Antibody IgM Nonreactive
--- NOTE | 2020-03-17 20:00 | PC.NURSE ---
pt iv fluids: NS @ 150ml/hr completed at 0040 by this RN
== END 2020-03-01 12:25 | disposition short-term general hospital (02) | DRG 194 ==
LOC: CHSED 21:18 → CHS2ND 02-29 14:01
PROVIDERS: Nurse Practitioner; Admitting Provider Family Medicine; Emergency Provider Family Medicine; PCP Internal Medicine; Visit Provider Family Medicine
DX: J18.9 Pneumonia, unspecified organism (principal); N17.9 Acute kidney failure, unspecified; Z20.828 Contact with and (suspected) exposure to other viral communicable diseases; F50.89 Other specified eating disorder; Z86.79 Personal history of other diseases of the circulatory system; B37.0 Candidal stomatitis; E86.0 Dehydration; R06.03 Acute respiratory distress; E87.8 Other disorders of electrolyte and fluid balance, not elsewhere classified; R62.7 Adult failure to thrive; R74.8 Abnormal levels of other serum enzymes; K59.00 Constipation, unspecified; I71.4 Abdominal aortic aneurysm, without rupture; I69.220 Aphasia following other nontraumatic intracranial hemorrhage; R79.89 Other specified abnormal findings of blood chemistry; M16.12 Unilateral primary osteoarthritis, left hip; F17.210 Nicotine dependence, cigarettes, uncomplicated; F12.90 Cannabis use, unspecified, uncomplicated; F32.9 Major depressive disorder, single episode, unspecified; M16.0 Bilateral primary osteoarthritis of hip; R63.4 Abnormal weight loss
CPT/HCPCS: 36415; 36600; 70450; 71045; 71250; 73501; 74176; 80048; 80053; 80307; 81001; 82104; 82140; 82248; 82390; 82550; 82553; 82728; 82805; 82977; 83516; 83520; 83540; 83550; 83605; 83690; 83735; 83880; 84100; 84443; 84484; 85027; 85055; 85380; 85610; 85652; 85730; 86038; 86140; 86300; 86301; 86304; 86703; 86706; 87081; 87635; 87804; 87880; 93005; 94002; 96361; 96365; 96366; 96367; 99283; 99285; A9270; C9803; J1650; J2060; J2543; J3370; J3411; J3475; J3480; J7030; J7042; J7121; U0003

== ENCOUNTER 2020-06-16 17:32 | Outpatient (CLI) | payer OTHER, MEDICARE, SELFPAY ==
[2020-06-16 18:14] LABS: Basophils Absolute Auto 0.04 K/mm3 (0.00-0.10); Basophils Percent Auto 0.5 % (0.0-1.0); Eosinophils Absolute Auto 0.12 K/mm3 (0.02-0.50); Eosinophils Percent Auto 1.4 % (1.0-6.0); Hematocrit 42.1 % (35.0-49.0); Hemoglobin 13.2 g/dL (12.0-15.0); Immature Granulocyte Absolute 0.05 K/mm3 (0.00-0.00); Immature Granulocyte Percent A 0.6 % (0.0-0.0); Lymphocytes Absolute Auto 2.49 K/mm3 (1.10-4.50); Lymphocytes Percent Auto 29.7 % (18.0-42.0); Mean Corpuscular HGB Conc 31.4 g/dL (32.0-36.0); Mean Corpuscular Hemoglobin 33.9 pg (27.0-31.0); Mean Corpuscular Volume 108.2 fL (78.0-102.0); Mean Platelet Volume 9.3 fl (9.2-11.8); Monocytes Absolute Auto 0.74 K/mm3 (0.10-0.90); Monocytes Percent Auto 8.8 % (2.0-11.0); Neutrophils Absolute Auto 4.9 K/mm3 (1.7-7.2); Platelet Count Result 316 K/mm3 (150-420); Red Blood Count 3.89 M/mm3 (4.20-5.40); Red Cell Distribution Width 13.4 % (11.6-14.4); White Blood Count 8.4 K/mm3 (4.8-10.8)
[2020-06-16 19:24] LABS: Alanine Aminotransferase 24 U/L (14-59); Albumin Level 3.5 g/dL (3.4-5.0); Alkaline Phosphatase 96 U/L (46-116); Anion Gap 6 mmol/L (8-16); Aspartate Amino Transferase 15 U/L (15-37); Bilirubin,Total 0.2 mg/dL (0.00-1.00); Blood Urea Nitrogen 10 mg/dL (7-18); Calcium 9.4 mg/dL (8.5-10.1); Carbon Dioxide 33 mmol/L (21-32); Chloride 107 mmol/L (98-108); Estimated Glomerular Filt Rate > 60; Free T3 2.39 pg/mL (2.18-3.98); Free T4 Free Thyroxine 0.78 ng/dL (0.76-1.46); Glucose 85 mg/dL (70-99); Osmolality Calculated 300 mOsm/kg (285-295); Potassium 4.7 mmol/L (3.5-5.1); Sodium 146 mmol/L (136-145); Thyroid Stimulating Hormone 0.63 uIU/mL (0.36-3.74); Total Protein 7.3 g/dL (6.4-8.2)
[2020-06-16 19:25] LABS: BNP 85.1 pg/mL (0-100)
== END 2020-06-16 17:33 | disposition home or self-care (01) ==
LOC: CHSLAB 17:36
PROVIDERS: PCP Internal Medicine; Visit Provider Internal Medicine
DX: I48.91 Unspecified atrial fibrillation (principal); R06.00 Dyspnea, unspecified
CPT/HCPCS: 36415; 80053; 83880; 84439; 84443; 84481; 85025

== ENCOUNTER 2020-12-13 16:30 | Outpatient (CLI) | payer MEDICARE, SELFPAY ==
--- NOTE | ~2020-12-13 | CT_ITS ---
EXAMINATION: CT abdomen pelvis wo con DATE: 12/13/2020 17:04 INDICATION: Low abdominal pain. TECHNIQUE: Computed tomography (CT) of the abdomen and pelvis was performed without intravenous contr ast. Automated exposure control and iterative reconstruction technique were employed. The dose-length product was 160.13 mGy-cm. COMPARISON: CT abdomen and pelvis 02/28/2020 FINDINGS: The visualized portions of the lung bases demonstrate smooth septal thickening, consistent with mild pulmonary edema. There is mild atelectasis in the lower lobes. No pleural effusion. Cardiom egaly is noted. There are coronary artery calcifications. No pericardial effusion. There is a 13 mm c yst in the liver. The gallbladder, spleen, pancreas, adrenal glands, and right kidney are normal. The re is mild left hydronephrosis. There is a 9 mm hemorrhagic cyst in left kidney. A massive volume of stool markedly distends the rectum and sigmoid. The appendix is normal. There is a gastrostomy tube i n expected position. There is a ventriculoperitoneal shunt with trace ascites. There is a filter in t he inferior vena cava. There is a 3.5 cm fusiform infrarenal aortic aneurysm. There is an old healed fracture of right femoral neck with internal fixation. There is an old healed fracture of left femora l neck with internal fixation complicated by left femoral head osteonecrosis, articular surface colla pse, and severe left hip osteoarthritis. There is a chronic burst fracture of L4. IMPRESSION: 1. Massive volume of stool in the rectum and sigmoid colon with marked bowel distention. 2. Mild left hydronephrosis. 3. Mild pulmonary edema. 4. 3.5 cm fusiform aneurysm of infrarenal aorta. Reviewed, dictated and finalized at location A. IMPRESSION: 1. Massive volume of stool in the rectum and sigmoid colon with marked bowel di stention. 2. Mild left hydronephrosis. 3. Mild pulmonary edema. 4. 3.5 cm fusiform aneurysm of infrarenal aorta.
[2020-12-13 16:50] LABS: Basophils Absolute Auto 0.01 K/mm3 (0.00-0.10); Basophils Percent Auto 0.1 % (0.0-1.0); Hematocrit 36.5 % (35.0-49.0); Hemoglobin 11.4 g/dL (12.0-15.0); Immature Granulocyte Absolute 0.07 K/mm3 (0.00-0.00); Immature Granulocyte Percent A 0.6 % (0.0-0.0); Lymphocytes Percent Auto 7.6 % (18.0-42.0); Mean Corpuscular HGB Conc 31.2 g/dL (32.0-36.0); Mean Corpuscular Hemoglobin 32.4 pg (27.0-31.0); Mean Corpuscular Volume 103.7 fL (78.0-102.0); Mean Platelet Volume 10.6 fl (9.2-11.8); Monocytes Absolute Auto 0.77 K/mm3 (0.10-0.90); Monocytes Percent Auto 6.5 % (2.0-11.0); Neutrophils Percent Auto 85.2 % (50.0-70.0); Platelet Count Result 300 K/mm3 (150-420); Red Blood Count 3.52 M/mm3 (4.20-5.40); White Blood Count 11.8 K/mm3 (4.8-10.8)
[2020-12-13 17:06] LABS: Alanine Aminotransferase 31 U/L (14-59); Albumin Level 3.3 g/dL (3.4-5.0); Alkaline Phosphatase 80 U/L (46-116); Amylase 28 U/L (25-115); Anion Gap 7 mmol/L (8-16); Aspartate Amino Transferase 20 U/L (15-37); Bilirubin,Total 1.1 mg/dL (0.00-1.00); Blood Urea Nitrogen 45 mg/dL (7-18); Calcium 9.5 mg/dL (8.5-10.1); Carbon Dioxide 30 mmol/L (21-32); Chloride 107 mmol/L (98-108); Estimated Glomerular Filt Rate 43; Glucose 118 mg/dL (70-99); Lipase 43 U/L (73-393); Osmolality Calculated 310 mOsm/kg (285-295); Potassium 3.8 mmol/L (3.5-5.1); Sodium 144 mmol/L (136-145); Total Protein 7.4 g/dL (6.4-8.2)
[2020-12-14 10:04] LABS: Magnesium 2.6 mg/dL (1.8-2.4); Phosphorus 3.8 mg/dL (2.6-4.7)
== END 2020-12-13 16:31 | disposition home or self-care (01) ==
LOC: CHSLAB 16:36
PROVIDERS: PCP Internal Medicine; Visit Provider Internal Medicine
DX: R63.4 Abnormal weight loss (principal); R10.9 Unspecified abdominal pain; R13.10 Dysphagia, unspecified
CPT/HCPCS: 36415; 74176; 80053; 82150; 83690; 83735; 84100; 85025

== ENCOUNTER 2020-12-15 08:43 | Inpatient (IN) | payer MEDICARE, SELFPAY ==
[2020-12-15] VITALS (23 sets, daily range): BP systolic 64–124; BP diastolic 44–92; PULSE 92–128; RESP 16–32; TEMP 36.1–36.6; O2SAT 92–100
--- NOTE | ~2020-12-15 | CT_ITS ---
EXAMINATION: CTA LE RT DATE: 12/17/2020 15:44 INDICATION: Cold right leg. TECHNIQUE: Computed tomographic angiography (CTA) of the right lower extremity was performed with 150 mL Omnipaque-350 intravenous contrast. Automated exposure control and iterative reconstruction techn ique were employed. The dose-length product was 496.85 mGy-cm. Maximum intensity projection 3D-recons tructions of the arteries were created by the technologist on a separate workstation. COMPARISON: CT abdomen and pelvis 12/15/2020 FINDINGS: Again seen is mild stenosis of infrarenal aorta. There is mild stenosis of the common iliac arteries and internal iliac arteries. 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 T here is no contrast in any the right lower limb arteries. The left lower limb is partially visualized , and contrast is visible at least to the popliteal artery. The left lower leg arteries are not inclu ded. There are 2 surgical drains in the pelvis. IMPRESSION: 1. 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 No contrast in any of the right low er limb arteries at the time point of the scan. I discussed this result with Dr. Vazquez. Reviewed, dictated and finalized at location A. IMPRESSION: 1. 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 No contrast i n any of the right lower limb arteries at the time point of the scan. I discuss ed this result with Dr. Vazquez.
--- NOTE | ~2020-12-15 | CT_ITS ---
EXAMINATION: CT abdomen pelvis wo con DATE: 12/17/2020 15:44 INDICATION: Anemia. TECHNIQUE: Computed tomography (CT) of the abdomen and pelvis was performed without intravenous contr ast. Automated exposure control and iterative reconstruction technique were employed. The dose-length product was 292.49 mGy-cm. COMPARISON: CT abdomen and pelvis 12/15/2020 FINDINGS: The visualized portions of the lung bases demonstrate mild atelectasis. There are small ple ural effusions. Cardiomegaly is noted. There are coronary artery calcifications. No pericardial effus ion. The nasogastric tube tip is in the stomach. There is a new gastrostomy tube in expected position . There is periportal edema in the liver. The gallbladder is normal in size and contains contrast. Ga llbladder wall thickening is seen, likely interstitial edema. The spleen, pancreas, and adrenal gland s are normal. There is contrast in the kidneys from prior imaging and decreased kidney function. Ther e is a 3.9 cm fusiform aneurysm of infrarenal aorta. There is a filter in the inferior vena cava and right common iliac vein. There are no dilated loops of bowel. There is a colostomy on the left. The b ladder is depressed by a Herrera catheter. There are 2 surgical drains in the pelvis. There is free int raperitoneal gas, consistent with recent surgery. There is a benign bone island in left ilium. There is an old fracture of proximal right femur with internal fixation with antegrade intramedullary mayda a nd femoral head/neck screw. There is moderate right hip osteoarthritis. There is an old fracture of l eft femoral neck with 3 lag screws complicated by osteonecrosis and articular surface collapse of the femur. There is severe left hip osteoarthritis. There is a chronic burst fracture of L4. IMPRESSION: 1. Small pleural effusions. 2. 3.9 cm fusiform infrarenal aortic aneurysm. Reviewed, dictated and finalized at location A.
--- NOTE | ~2020-12-15 | CT_ITS ---
EXAMINATION: CT brain wo con INDICATION: Weakness COMPARISON: 02/28/2020 TECHNIQUE: Standard unenhanced head CT. The dose-length product (DLP) was 605.33 mGy-cm. The mA was a djusted according to patient size. Iterative reconstruction technique was employed. FINDINGS: There is no acute intraparenchymal hemorrhage. No evidence of mass lesion. No evidence of a cute infarction. There is chronic encephalomalacia in the left frontal and temporal lobes, the left t halamus, the right frontal lobe, the bilateral parietal lobes, and the left occipital lobe. A right o ccipital ventriculostomy ends with its tip in the body of the right lateral ventricle. 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 There is a left temporal craniotomy defect with aneurysm cli ps in the left sylvian fissure. There are no extra-axial collections. There is no mass effect or midl ine shift. The orbits and soft tissues are unremarkable. There is mild mucosal thickening of the par anasal sinuses. IMPRESSION: 1. Unchanged multifocal areas of chronic encephalomalacia without acute intracranial abnormality. 2. Age related findings. Reviewed, dictated and finalized at location A. IMPRESSION: 1. Unchanged multifocal areas of chronic encephalomalacia without acute intracr anial abnormality. 2. Age related findings.
--- NOTE | ~2020-12-15 | XR_ITS ---
EXAMINATION: XR abdomen NG/feed tube insert INDICATION: Nasogastric tube placement TECHNIQUE: Portable AP KUB-NG at 1155 hours COMPARISON: CT from today and radiographs dated 11/02/2016 FINDINGS: The tip of the nasogastric tube is in the stomach. The proximal side port is at the gastroe sophageal junction. Ventriculoperitoneal shunt catheter tubing courses over the right hemithorax and abdomen. There is subtle free intraperitoneal gas which is better visualized on the comparison CT. Co ntrast from earlier CT partially opacifies mildly distended collecting systems of the kidneys. Perioperative Assistant al stabilization right proximal humerus. IMPRESSION: 1. Nasogastric tube in the stomach with the side port near the gastroesophageal junction. Tube can be safely advanced 2 to 3 cm. 2. Subtle free intraperitoneal gas, better visualized on the comparison CT. Reviewed, dictated and finalized at location A.
--- NOTE | ~2020-12-15 | XR_ITS ---
EXAMINATION: XR chest port-a-cath/central INDICATION: New central line placement TECHNIQUE: Portable AP view of the chest is obtained at 0441 hours COMPARISON: 0312 hours FINDINGS: The left internal jugular central venous catheter has been removed. There is a small amount of gas in the left neck at the previous catheter site. A left subclavian central venous catheter is been inserted which ends with its tip in the proximal superior vena cava. The endotracheal tube ends approximately 4 cm above the rashida. The nasogastric tube is followed as far as the stomach. Its tip is beyond the inferior margin of the radiograph. Cardiomegaly is noted. There is mild atelectasis of the lung bases. No pleural effusion or pneumothorax is identified. The ventriculoperitoneal shunt cat heter tubing is again noted to be discontinuous, consistent with recent surgery. IMPRESSION: 1. Left subclavian central venous catheter ending with its tip in the proximal superior vena cava. Re moved left internal jugular catheter. 2. Cardiomegaly. Reviewed, dictated and finalized at location A. IMPRESSION: 1. Left subclavian central venous catheter ending with its tip in the proximal superior vena cava. Removed left internal jugular catheter. 2. Cardiomegaly.
--- NOTE | ~2020-12-15 | XR_ITS ---
EXAMINATION: XR chest port-a-cath/central DATE: 12/15/2020 18:22 INDICATION: Central line placement. TECHNIQUE: A single frontal view of the chest was obtained. COMPARISON: Chest single view 12/15/2020 at 10:18 AM, CT abdomen and pelvis 12/15/2020 FINDINGS: There is mild atelectasis at left lung base. Calcified bilateral pulmonary nodules are cons istent with old granulomatous disease. No pleural effusion or pneumothorax. Cardiomegaly is noted. Th e nasogastric tube tip is in the stomach. The endotracheal tube tip is 6.6 cm above the rashida. A lef t internal jugular central venous catheter is seen with tip in the left brachiocephalic vein. There i s plate and screw fixation of left humerus. A right-sided ventriculoperitoneal shunt is noted. There are old healed right rib fractures. IMPRESSION: 1. Central line tip in left brachiocephalic vein. 2. Mild atelectasis at left lung base. 3. Cardiomegaly. Reviewed, dictated and finalized at location A.
--- NOTE | ~2020-12-15 | XR_ITS ---
EXAMINATION: XR chest 1V portable INDICATION: Respiratory failure, possible central line movement TECHNIQUE: Portable AP chest at 0312 hours COMPARISON: 12/15/2020 FINDINGS: The left internal jugular central venous catheter has been retracted and ends in the compliance intern al jugular vein. The endotracheal tube ends 3.8 cm above the rashiad. The nasogastric tube is in the s tomach. There is stable cardiomegaly. No pleural effusion or pneumothorax is identified. There is mil d atelectasis of the lung bases. Ventriculoperitoneal shunt catheter tubing courses over the right he mithorax. There is a percutaneous gastrostomy. The ventriculoperitoneal shunt catheter tubing is now discontinuous. IMPRESSION: 1. Retraction of the left internal jugular central line into the jugular vein. 2. Cardiomegaly. 3. Discontinuity of the ventriculoperitoneal shunt. Reviewed, dictated and finalized at location A.
--- NOTE | ~2020-12-15 | US_ITS ---
EXAMINATION: US arterial ankle brachial ind DATE: 12/17/2020 18:20 INDICATION: Peripheral arterial disease. TECHNIQUE: Segmental pressures and plethysmographic and Doppler waveforms of the brachial and lower e xtremity arteries were obtained. COMPARISON: CTA 12/17/2020 FINDINGS: Right and left brachial artery pressures of 89 mm Hg and 86 mm Hg, respectively, are concordant (norm al difference <= 30 mmHg). There is no detectable arterial signal in posterior tibial artery or dorsalis pedis. The left FAINA is 0.87. The left great toe arterial signal was not detectable. Arterial Doppler wavefor ms are monophasic at the ankle. IMPRESSION: 1. No detectable arterial flow at right ankle. 2. Mildly decreased left FAINA and undetectable arterial signal in left great toe, consistent with monique rial occlusive disease. Reviewed, dictated and finalized at location A. IMPRESSION: 1. No detectable arterial flow at right ankle. 2. Mildly decreased left FAINA and undetectable arterial signal in left great toe , consistent with arterial occlusive disease.
--- NOTE | ~2020-12-15 | XR_ITS ---
EXAMINATION: XR chest 1V portable EXAM DATE: 12/17/2020 10:43 INDICATION: Respiratory failure. TECHNIQUE: Portable AP frontal chest x-ray was obtained. Comparison is made to prior examination from 12/16/2020. FINDINGS: Endotracheal tube tip is 5-6 centimeters above the rashida. There is a nasogastric tube see n with tip collimated off the study, but below the left hemidiaphragm. Ventriculoperitoneal shunt wit h discontinuity at the inferior margin, reportedly intentional postoperative finding due to gross con tamination. There is a left subclavian venous line. There is mild cardiomegaly. Diffuse indistinct reticulation more on the right side most likely asymme tric pulmonary edema. Pneumonia not excludable, but no dense confluent consolidation. No pneumothorax or pleural effusion. There is aortic arteriosclerosis. Left humeral hardware. Gastrostomy tube. Bone s appear osteopenic. Compared to yesterday, the abnormal reticulation most likely pulmonary edema has developed or increas ed. IMPRESSION: 1. Line and tube(s) in position. 2. Developing bilateral abnormal reticulation most consistent with pulmonary edema. Reviewed, dictated and finalized at location B. IMPRESSION: 1. Line and tube(s) in position. 2. Developing bilateral abnormal reticulation most consistent with pulmonary e priscilla.
--- NOTE | ~2020-12-15 | CT_ITS ---
EXAMINATION: CT abdomen pelvis w con INDICATION: Obstruction and constipation TECHNIQUE: Computed tomographic images of the abdomen and pelvis were obtained after the administrati on of 84 cc of Omnipaque 350 intravenous contrast. The dose-length product (DLP) was 216.18 mGy-cm. A utomated exposure control and iterative reconstruction technique were employed. COMPARISON: 12/13/2020 FINDINGS: Cardiomegaly is noted. There is smooth interlobular septal thickening in the visualized fitz g bases with mild groundglass opacity. The liver, spleen, pancreas, gallbladder, and adrenal glands a re normal. The right kidney is unremarkable. A hemorrhagic cyst is again noted in the left kidney. Th ere is a 3.5 cm fusiform aneurysm of the infrarenal abdominal aorta. An inferior vena cava filter is noted. There are no pathologically enlarged abdominal lymph nodes. There is a massive amount of stool in the rectum and sigmoid colon. There is free intraperitoneal gas , predominantly in the upper abdomen. A moderate volume of ascites has developed. A gastrostomy is no josr. Ventriculoperitoneal shunt catheter tubing courses over the right hemithorax and right abdomen, ending with its tip in the left pelvis. There is an old healed fracture of the left femoral neck with internal fixation. Again noted are osteonecrosis, osteoarthritis and articular surface collapse in t he left hip. Also noted is an old healed fracture of the right femoral neck with internal fixation. IMPRESSION: 1. Massive volume of stool in the rectum and sigmoid colon. New ascites and free intraperitoneal gas raise concern for perforated viscus. Surgical evaluation is recommended. These findings and recommend ations were discussed with HUGH Woods in the Emergency Department at 1047 hours on 12/15/2020. 2. Cardiomegaly with mild pulmonary edema. Reviewed, dictated and finalized at location A. IMPRESSION: 1. Massive volume of stool in the rectum and sigmoid colon. New ascites and luther e intraperitoneal gas raise concern for perforated viscus. Surgical evaluation is recommended. These findings and recommendations were discussed with Danny Y oung, PAC in the Emergency Department at 1047 hours on 12/15/2020. 2. Cardiomegaly with mild pulmonary edema.
--- NOTE | ~2020-12-15 | XR_ITS ---
EXAMINATION: XR chest 1V EXAM DATE: 12/15/2020 10:26 INDICATION: Sepsis, weakness . TECHNIQUE: Portable AP frontal chest x-ray was obtained. Comparison is made to prior examination from 03/01/2020. FINDINGS: Small amount of bibasilar atelectasis or pneumonia. Cardiomegaly. There is aortic arteriosc lerosis. There is no pneumothorax suspected. There are no pleural effusions. Bones appear somewhat o steopenic. There is left humeral hardware. Ventriculoperitoneal shunt tubing, neck and thoracic porti on intact. IMPRESSION: 1. Subsegmental ill-defined bibasilar atelectasis or pneumonia. 2. Cardiomegaly. Reviewed, dictated and finalized at location B.
[2020-12-15] MEDS: FAMOTIDINE 20 MG/2 ML VIAL IV PUSH (09:28)
[2020-12-15] MEDS: SODIUM CHLORIDE 0.9% IV 1,000 ML 999 ML IV CONT ×3 (09:29→22:16)
[2020-12-15 09:51] LABS: Basophils Percent Auto 0.1 % (0.2-1.2); Hematocrit 47.1 % (37.0-47.0); Hemoglobin 15.2 g/dL (12.0-15.0); Immature Granulocyte Absolute 0.02 K/mm3 (0.00-0.031); Immature Granulocyte Percent A 0.2 % (0-0.5); Lymphocytes Percent Auto 4.3 % (18.3-44.2); Mean Corpuscular HGB Conc 32.3 g/dl (32-36); Mean Corpuscular Hemoglobin 32.7 pg (26-34); Mean Corpuscular Volume 101.3 fl (80-100); Mean Platelet Volume 11.3 fl (7.4-10.4); Monocytes Absolute Auto 0.5 K/mm3 (0.1-0.6); Monocytes Percent Auto 5.1 % (2.6-8.5); Neutrophils Absolute Auto 8.4 K/mm3 (1.3-6.7); Neutrophils Percent Auto 90.3 % (45.5-73.1); Nucleated Red Blood Cells Perc 0.2 % (0.0-0.2); Platelet Count Result 336 k/mm3 (150-375); Red Blood Count 4.65 M/mm3 (4.2-5.4); Red Cell Distribution Width 15.2 % (11.5-14.5); White Blood Count 9.3 K/mm3 (4.5-10.0)
--- NOTE | 2020-12-15 09:54 | ED.GENADULT ---
HPI - General Adult General Chief complaint: Abdominal Pain Stated complaint: constipation Time Seen by Provider: 12/15/20 09:08 Source: patient, family, RN notes reviewed and old records reviewed Mode of arrival: ambulatory Limitations: clinical condition History of Present Illness HPI narrative: Patient is a 60-year-old female who presents per recommendation of her primary care doctor Dr. Sethi who she saw on Sunday patient has longstanding history of failure to thrive and disability patient typically is malnourished and over the last week has only been eating very little but is taking her nutrition orally patient typically has little activity is a smoker and frequently stays at home with little activity is noted and drinks coffee lives with her who is the primary historian given the patient's current state of weakness she talks very little. Patient has not had a bowel movement in over a week saw her primary care doctor had CAT scan had significant constipation on the CT imaging and dehydration and her blood work patient was sent home and continues to have inability to have a bowel movement and is now more weak denies any vomiting rectal bleeding melena patient has a PEG tube which has not been used in a long time. Patient only complains of abdominal pain on arrival and is significantly distended. Reviewing the patient's labs and imaging showed severe constipation and dehydration Related Data Home Medications Medication Instructions Recorded Confirmed fluconazole 100 mg PO DAILY 02/28/20 02/28/20 Allergies Allergy/AdvReac Type Severity Reaction Status Date / Time morphine Allergy Unknown Unknown Verified 12/15/20 09:31 Review of Systems Review of Systems: Narrative: Limited due to clinical condition ROS unobtainable: Yes unobtainable due to medical condition (Patient answered no to review of system questions except abdominal pain) [facility] Past Medical History Medical History (Updated 12/15/20 @ 12:11 by Liang Chavez DO) Aneurysm of anterior cerebral artery COPD (chronic obstructive pulmonary disease) Intracranial aneurysm Intracranial hemorrhage of aneurysm Surgical History Surgical History Intracranial hemorrhage, spontaneous subarachnoid, due to cerebral aneurysm, remote, resolved Social History Social History Smoking packs per day: 1 Smoking cigarettes per day: 20.0 Years smoked: 41 Smoking pack-years: 41.00 Smoking status: Current every day smoker Tobacco type: cigarettes Alcohol intake: never Substance use type: marijuana Last use: one time Gender identity (if verbalized by the patient): Female Spiritual care concerns: No Exam Narrative: Exam Narrative: GENERAL: Ill-appearing, malnourished, uncomfortable and in no acute distress. HEAD: Normocephalic, atraumatic. EYES: PERRLA and EOMI. ENT: Nares clear, no rhinorrhea or epistaxis. Mucous membranes moist. Oropharynx without tonsillar hypertrophy exudate or other lesions. CHEST: Clear to auscultation. No respiratory distress. No wheezes rales or rhonchi HEART: Regular rate and rhythm. No murmur heard. Normal peripheral pulses. ABDOMEN: Firm, tender, distended, minimal bowel sounds EXTREMITIES: Normal range of motion. No edema. SKIN: Warm, dry, no rash. NEURO: No focal deficits. Alert and oriented to self and will nod and answer to questions but does not appear to want to answer questions at this time PSYCH: Normal mood and affect. Course Course Emergency Course: Patient presented with severe constipation patient had imaging on Sunday with repeat imaging today revealing free air in the abdomen patient will have Zosyn ordered continue hydration and discussion with general surgery in the management of this patient. Surgical team is decided to take the patient to the operative suite at this time Ree
[2020-12-15 10:01] LABS: Add Urine Microscopic? YES; Alanine Aminotransferase 27 U/L (4-35); Albumin Level 3.8 g/dL (3.5-5.1); Alkaline Phosphatase 82 U/L (38-126); Anion Gap 8 mmol/L (8-16); Appearance Urine Cloudy (Clear); Aspartate Amino Transferase 43 U/L (14-36); Bacteria Urine Trace /hpf; Bilirubin Urine Negative (Negative); Bilirubin,Total 1.5 mg/dL (0.2-1.3); Blood Urea Nitrogen 50 mg/dL (7-17); Blood Urine 1+ (Negative); Calcium 9.2 mg/dL (8.4-10.2); Carbon Dioxide 26 mmol/L (22-30); Chloride 114 mmol/L (98-107); Color Urine Amber (Yellow); Estimated CRCL calculation 32 ml/min; Estimated Glomerular Filt Rate 57; Glucose 151 mg/dL (65-105); Glucose Urine UA Negative (Negative); Ketones Urine Trace mg/dL (Negative); Leukocyte Esterase Ur Negative LEU/UL (Negative); Mucus Urine Few /lpf; Nitrate Urine Negative (Negative); Potassium 3.5 mmol/L (3.4-5.0); Protein Urine 1+ mg/dL (Negative); Sodium 148 mmol/L (137-145); Specific Grav Ur 1.027 (1.001-1.035); Squamous Epithelial Cell Urine Few /hpf (Few)
[2020-12-15 10:06] LABS: Lipase 36 U/L (23-300)
--- NOTE | 2020-12-15 10:09 | PC.NURSE ---
Pt to CT via stretcher at this time.
[2020-12-15] MEDS: PANTOPRAZOLE SODIUM IV 40 MG VIAL IV PUSH ×2 (10:37→22:06)
[2020-12-15 11:43] LABS: Lactic Acid Reflex 2.2 mmol/L (0.7-2.1)
[2020-12-15 11:44] LABS: Magnesium 2.8 mg/dL (1.6-2.3); Phosphorus 3.1 mg/dL (2.5-4.5)
--- NOTE | 2020-12-15 12:21 | PM.CNGS ---
Assessment and Plan Assessment and plan (1) Fecal impaction of colon: Code(s): K56.41 - Fecal impaction Status: Acute Assessment and Plan: Patient seen in the ER with Dr. Lyon at the bedside. The CT scan was reviewed with the Radiologist and also in comparison to the CT scan performed 2 days ago. The patient has an extremely large volume of stool that is in the rectum and extending up the sigmoid colon causing severe dilation of the colon and rectum in these areas. There are new findings of a small amount of free intraperitoneal air in the upper abdomen and a moderate volume of ascites when comparing today's CT scan to 2 days ago. These findings are complicated by the fact that she has a [employer] shunt, which could account for some ascites, and she also has a G-tube, which could potentially account for the free air in the upper abdomen. These findings could also be due to a perforation in the colon from the severe dilation from the massive volume of stool. Her white blood cell count is normal. Her abdominal exam reveals a large, firm palpable stool ball, but she does not have peritoneal signs. She was slightly tachycardic and borderline hypotensive on arrival, which has improved with IV fluid hydration. Due to the massive amount of stool in her sigmoid colon and rectum, it does not seem likely this is going to pass spontaneously with medical management. Therefore, Dr. Lyon has recommended proceeding with a partial colectomy with a colostomy today. We have discussed the plan with the patient and her . Description of the procedure, risks, benefits, expected outcomes, and expected recovery were discussed in detail. They agree to proceed. We will add this onto the surgery schedule today. We also had an NG tube placed and will keep her NPO. Will start broad-spectrum IV antibiotics and IV fluids. (2) Free intraperitoneal air: Code(s): K66.8 - Other specified disorders of peritoneum Status: Acute Assessment and Plan: Findings of a small amount of free intraperitoneal air on the CT that is localized in the upper abdomen. This could be related to either her G-tube or perforation from the severely dilated colon. Will proceed with surgery, see plan above. (3) Constipation: Code(s): K59.00 - Constipation, unspecified Status: Acute Assessment and Plan: Obviously a chronic issue. (4) Gastrostomy tube dysfunction: Code(s): K94.23 - Gastrostomy malfunction Status: Acute Assessment and Plan: G-tube placed in February of 2020 in [place], [place] due to failure to thrive. Used for supplemental nutrition with Ensure frequently. Patient's has not used for the past month due to issues with leaking and now he feels it may be clogged. Will discuss with Dr. Lyon. (5) Aneurysm of infrarenal abdominal aorta: Code(s): I71.4 - Abdominal aortic aneurysm, without rupture Status: Acute (6) Adult failure to thrive: Code(s): R62.7 - Adult failure to thrive Status: Acute Assessment and Plan: G-tube in place and non-functioning as mentioned above. (7) Malnutrition: Code(s): E46 - Unspecified protein-calorie malnutrition Status: Acute Assessment and Plan: Increases risks of surgery. (8) History of intracranial aneurysm: Code(s): Z86.79 - Personal history of other diseases of the circulatory system Status: Acute (9) COPD (chronic obstructive pulmonary disease): Code(s): J44.9 - Chronic obstructive pulmonary disease, unspecified Status: Inactive Assessment and Plan: Increases risks of surgery. (10) S/P [employer] shunt: Code(s): Z98.2 - Presence of cerebrospinal fluid drainage device Status: Inactive Additional Plan I have discussed the patient's case and plan of care with Dr. Lyon. History of Present Illness Consult details Consult date: 12/15/20 Reason for consult: other (Fecal impaction with possible bowel perforatio
--- NOTE | 2020-12-15 13:28 | WPDANESEPPF ---
Anes - Initial Pre Proc Eval Procedure: Operation Date: 12/15/20 14:00 Proposed Procedures p Left Colectomy With Colostomy - Kings Lyon MD Date/Time: 12/15/20 13:28 Surgeon: Kings Lyon MD Pre Op Diagnosis: constipation Patient Data Age: 60 Gender: F Height: 5 ft 6 in Weight: 41.3 kg Last Vital Signs Temp 36.6 C 12/15/20 08:56 Pulse 100 12/15/20 13:06 Resp 27 H 12/15/20 13:06 BP 104/80 12/15/20 13:06 Pulse Ox 96 12/15/20 13:06 Allergies Allergy/AdvReac Type Severity Reaction Status Date / Time morphine Allergy Unknown Unknown Verified 12/15/20 09:31 Home Medications Medication Instructions Recorded Confirmed Type fluconazole 100 mg PO DAILY 02/28/20 02/28/20 History albuterol sulfate [Proventil HFA] 8 puff INHALATION QID #6.7 gm 03/01/20 Rx docusate sodium 100 mg PO DAILY #10 cap 03/01/20 Rx duloxetine [Cymbalta] 20 mg PO QAM #10 cap 03/01/20 Rx enoxaparin 30 mg SUBCUT DAILY #10 ml 03/01/20 Rx levofloxacin in D5W 750 mg IV Q48HR #10 ml 03/01/20 Rx lorazepam 0.5 mg IVPUSH Q6H PRN #10 ml 03/01/20 Rx megestrol 40 mg PO QID #10 tablet 03/01/20 Rx methylprednisolone sodium succ 125 mg IVPUSH Q6H #10 ea 03/01/20 Rx nicotine [Nicoderm CQ] 1 patch TRANSDERMAL HS #10 ea 03/01/20 Rx nystatin 5 ml PO QID #10 ml 03/01/20 Rx pantoprazole [Protonix] 40 mg IVPUSH ONCE #1 each 03/01/20 Rx sennosides-docusate sodium 1 tab PO HS #10 tablet 03/01/20 Rx [Senokot-S] tiotropium bromide [Spiriva with 1 cap INHALATION QAM #10 inh 03/01/20 Rx HandiHaler] Laboratory Tests 12/15/20 12/15/20 12/15/20 09:35 09:35 09:35 WBC 9.3 K/mm3 K/mm3 (4.5-10.0) RBC 4.65 M/mm3 M/mm3 (4.2-5.4) Hgb 15.2 g/dL H g/dL (12.0-15.0) Hct 47.1 % H % (37.0-47.0) MCV 101.3 fl H fl (80-100) MCH 32.7 pg pg (26-34) MCHC 32.3 g/dl g/dl (32-36) RDW 15.2 % H % (11.5-14.5) Plt Count 336 k/mm3 k/mm3 (150-375) MPV 11.3 fl H fl (7.4-10.4) Immature Gran % (Auto) 0.2 % % (0-0.5) Neut % (Auto) 90.3 % H % (45.5-73.1) Lymph % (Auto) 4.3 % L % (18.3-44.2) [place] % (Auto) 5.1 % % (2.6-8.5) Eos % (Auto) 0.0 % % (0-4.4) Baso % (Auto) 0.1 % L % (0.2-1.2) Lymph # (Auto) 0.40 K/mm3 L K/mm3 (0.9-3.2) [place] # (Auto) 0.5 K/mm3 K/mm3 (0.1-0.6) Eos # (Auto) 0.0 K/mm3 K/mm3 (0-0.3) Baso # (Auto) 0.0 K/mm3 K/mm3 (0.0-0.1) Abs Immat Gran (auto) 0.02 K/mm3 K/mm3 (0.00-0.031) Absolute Neuts (auto) 8.4 K/mm3 H K/mm3 (1.3-6.7) Absolute Nucleated RBC 0.0 K/mm3 K/mm3 (0.0-0.012) Nucleated RBC % 0.2 % % (0.0-0.2) Sodium Potassium Chloride Carbon Dioxide Anion Gap BUN Creatinine Estim Creat Clear Calc Estimated GFR Glucose Lactic Acid Calcium Phosphorus Magnesium Total Bilirubin Direct Bilirubin AST ALT Alkaline Phosphatase Total Protein Albumin Lipase 36 U/L U/L (23-300) Urine Color Quin (Yellow) Urine Appearance Cloudy H (Clear) Urine pH 5.0 (5.0-9.0) Ur Specific [place] 1.027 (1.001-1.035) Urine Protein 1+ mg/dL H mg/dL (Negative) Urine Glucose (UA) Negative mg/dL mg/dL (Negative) Urine Ketones Trace mg/dL mg/dL (Negative) Ur Blood (Man) 1+ H (Negative) Urine Nitrate Negative (Negative) Urine Bilirubin Negative (Negative) Urine Urobilinogen 4.0 mg/dL H mg/dL (<2.0) Leukocyte Esterase Rfl Negative ANNE MARIE/UL ANNE MARIE/UL (Negative) Urine RBC 11-20
[2020-12-15] MEDS: LACTATED RINGERS 1,000 ML 30 ML IV CONT (13:45)
--- NOTE | 2020-12-15 13:53 | SUR.PREOP ---
1325; PT INTO PREOP FROM ER, PT ALERT TO SELF. DISORIENTED TO TIME AND PLACE. SPOUSE AT SIDE. HE SIGNED CONSENT. HOB ELEVATED 30 DEGREES. NG TO RT NARE TO LWS. PT HAS PEG TUBE. CLAMPED. SPOUSE STATES IT LEAKS. JEWELRY REMOVED AND GIVEN TO SPOUSE. PT WEARING DEPENDS. 1330; BP 85-58. DR BARTHOLOMEW NOTIFIED.
--- NOTE | 2020-12-15 13:54 | WPDHPUPDATE1 ---
History and Physical Update Update Date/Time: 12/15/20 13:54 History and Physical has been reviewed, including an updated exam of the patient. There are NO changes in the patient's condition. Risks, benefits, and alternatives have been discussed and questions answered. Patient agrees to proceed with procedure.
[2020-12-15 14:32] LABS: Reflex Lactic Acid Yes or No Add Lactic
--- NOTE | 2020-12-15 15:51 | P.PCNANE_ITS ---
Anes - Cent Venous Cath Note Consent: I have discussed with the patient/family/POA, the non-emergent placement of a central venous catheter, including its clinical necessity/indication and associated potential risks and complications. The patient/family/POA understand(s) and acknowledge(s) the need to proceed with central venous catheter insertion as an important element of the patient's clinical management given emergent patient conditions, temporal constraints may have precluded informed consent. Time-Out: A pre-procedural Time-Out was completed immediately before starting the procedure and confirmed: Patient Identification, Site, Procedure, Patient Position and the Availability of Requisite Equipment. Procedure Note Clinical Indications: critical condition Patient position: trendelenburg Central venous catheter insertion site: left internal jugular CVC method of insertion: ultrasound-guided Hand hygiene/Aseptic technique: Hand hygiene procedures were performed. Aseptic technique was maintained throughout the procedure. Sterile barrier precautions: Maximal sterile barrier precautions, including use of a cap, mask, sterile gown, sterile gloves and a sterile full body drape. Site prep: chlorhexidine Skin anesthesia: placed under general anesthesia [place]: 7 Lumen: 3 Length (cm): 20 cm Depth of insertion (cm): 15 Closure/Dressing: suture, biopatch and tegaderm Complications: None immediately noted/suspected. Chest X Ray: Ordered/review to follow.
[2020-12-15] MEDS: fentaNYL CITRATE INJ (*CRX) 100 MCG/2 ML VIAL 50 MCG IV PUSH (17:30)
[2020-12-15] MEDS: LACTATED RINGERS 1,000 ML 150 ML IV CONT (17:40)
--- NOTE | 2020-12-15 17:58 | PM.PROC ---
Procedure Note - Detailed Date of procedure: 12/15/20 Pre-op diagnosis: Fecal impaction, free intraperitoneal air Fecal impaction, free intraperitoneal air, gastrostomy tube dysfunction, cardiopulmonary arrest Post-op diagnosis: other (Left colon perforation, fecal peritonitis, fecal impaction, gastrostomy tube dysfunction) Procedure performed: Placement right femoral arterial central venous catheter, left colectomy with end descending colostomy, evacuation fecal impaction, replacement gastrostomy tube Description of procedure: The patient was taken to the emergency room and intubated with minimal anesthetic being given. While being prepared for surgery, the patient lost her pulse and blood pressure. I was called back to the room. Cardiopulmonary resuscitation was being given. She responded to epinephrine and regained blood pressure pulse and heart rate. Central line was placed by Anesthesia. I prepped the right femoral area and puncture the right femoral artery in the groin. I was able to pass a guidewire into the right iliofemoral artery. A pigtail catheter with side-arm was then passed over the guidewire into the right femoral artery. The side-arm was attached to arterial monitor and registered blood pressure throughout the surgery. The right femoral arterial line was sutured to the skin and dressed with a sterile transparent dressing. Even though the patient was only somewhat stable, it was felt that the source of her instability was the fecal impaction with impending bowel ischemia and possibly perforation. We proceeded with the surgery feeling it was hopeless without it. The abdomen was prepped and draped. The gastrostomy tube was removed prior to prepping and draping as it was obviously dysfunctional and had a perforation in the tubing. I proceeded with a midline incision. This was started out in just the lower half of the abdomen but as we entered the abdomen the massively distended and dilated descending colon and sigmoid colon were encountered. It was obvious nearly a full length abdominal incision would be required. The incision was lengthened both cephalad and towards the pubis. The had abdomen was explored and there was leakage from the more proximal descending colon of stool into the abdomen. There was fecal stained ascites in the abdomen as well as inflammatory changes. I packed off the area that was leaking stool and then tried to mobilize the descending colon. It was nearly impossible to expose as it was taking up the entire abdomen in fact distending the abdomen. After multiple attempts at mobilizing this to eviscerate this part of the bowel, it became obvious that the impaction would half to be evacuated to allow this bowel to be removed. I should point out that the end of the UNDERWRITING OPERATIONS MANAGER shunt was exposed to the fecal contamination on entering the abdomen and was certainly exposed throughout the surgery. The patient was on vasopressor agents nearly the entire operation. I chose an area that was essentially out of the peritoneal cavity to open the distal descending or upper sigmoid colon. Once this was opened, I evacuated the tremendous amount of intraluminal stool and placed in a large basin. Attempts were made to minimize any stool in the peritoneal cavity. I went back and removed a bit more of the stool and kept this part of the bowel eviscerated as much as possible. Following this I changed gloves and mobilized the distal sigmoid and upper rectum. It was extremely dilated. I used 4 different firings of the TLC 75 stapling instrument to divide the upper rectum from the distal sigmoid colon. Eventually the distal sigmoid was freed and was able to be brought out of the peritoneal cavity. This left a large space in the pelvis as 1 might imagine as it was completely taken up previously from the fecal impaction. I then proceeded back to the upper descending colon where there was some solid stool but no impaction. It was normal sized bowel. I used t
--- NOTE | 2020-12-15 18:46 | ADMGEN ---
This patient, Shawnee Vides, was admitted to Intensive Care Unit-8. Patient/family oriented to hospital policies and general routines including ID bracelet, bed and alarms, visiting hours, pain management, procedures, bathroom and other care routines, personal items, smoking policy, room service/diet, and visiting hours. Information on how to activate the Rapid Response Team has been discussed. Patient/Family are encouraged to report perceived risks to care and to ask questions if they do not understand what they are told or what they should do.
[2020-12-15] MEDS: NOREPINEPHRINE 8 MG/D5W 250 ML 8 MG/250 ML BAG 22.5 MG IV CONT (19:00)
[2020-12-15 19:31] LABS: Lactic Acid 4.5 mmol/L (0.7-2.1)
--- NOTE | 2020-12-15 19:42 | ECG_ITS ---
Measurements Intervals Challenge Rate: 127 P: 76 ND: 88 QRS: 50 QRSD: 87 T: 169 QT: 300 QTc: 437 Interpretive Statements SINUS TACHYCARDIA WITH SHORT ND INTERVAL VOLTAGE CRITERIA FOR LVH POOR R WAVE PROGRESSION, ANTERIOR LEADS BORDERLINE ST-T WAVE ABNORMALITY- INF/HIGH LAT LEADS ABNORMAL ECG Electronically Signed On 12-16-2020 6:41:56 CDT by Eyad Shelton D.O.
[2020-12-15 20:14] LABS: Lactic Acid Reflex 4.4 mmol/L (0.7-2.1)
--- NOTE | 2020-12-15 20:23 | PC.NURSE ---
Patient found on 12 mcg/min of Levophed, current blood pressure 93/82 mmHg.
[2020-12-15 20:33] LABS: Alveolar/Arterial O2 Gradient 139.5 mmHg; Base Excess ABG -3.1 mEq/l (+/-2.0); Fractional Inspired Oxygen 60 %; HCO3 ABG 18.9 mEq/l (22.0-26.0); Oxygen Saturation ABG 99.7 % (95.0-100.0); Oxyhemoglobin 98.4 % THb (90.0-100.0); PCO2 ABG 25.9 mmHg (35.0-45.0); PO2 ABG 259.8 mmHg (80.0-100.0); PO2 FiO2 Ratio Arterial Blood 4.33 %; Total Hemoglobin 12.6 g/dL (12.0-18.0); pH ABG 7.482 (7.350-7.450)
[2020-12-15 20:37] LABS: Arterial Blood Gas PEEP 5 cmH2O; Arterial Blood Gas Vent Mode CMV; Arterial Blood Gas Ventilator rate 18 /MIN; Device VENTILATOR; Site Drawn ARTLINE
[2020-12-15 20:38] LABS: Arterial Blood Gas Tidal Volume 350 ml
[2020-12-15] MEDS: MIDAZOLAM HCL (*CRX) 2 MG/2 ML VIAL IV PUSH (21:20)
[2020-12-15] MEDS: dexmedeTOMIDine 400 MCG/100 ML 400 MCG/100 ML BAG IV CONT (21:21)
[2020-12-15] MEDS: VASOPRESSIN INJ 100 UNITS in DEXTROSE 5% 95 ML IV CONT (21:22)
[2020-12-15] MEDS: ENOXAPARIN 30 MG/0.3 ML SYRINGE SUB-Q (21:53)
--- NOTE | 2020-12-15 21:55 | PC.NURSE ---
Addendum entered by Danielle Ivy RN 12/15/20 22:13: Eitan verified with Dr. Rouse that it is OK to run vasopressin and levophed through the Left IJ central line. Original Note: Spoke with WILLIAM Laird, who called and spoke with Dr. Rouse. Dr. Rouse said the central line is OK to use for fluids, will need to draw blood for lab from other site if continues to not allow blood draw. Telephone order read back entered for OK to use line.
[2020-12-15] MEDS: CENTRAL LINE FLUSH 10 ML IV PUSH (22:16)
[2020-12-15] MEDS: HYDROCORTISONE SODIUM SUCCINATE 100 MG/2 ML VIAL IV PUSH (23:00)
[2020-12-16] VITALS (42 sets, daily range): BP systolic 44–128; BP diastolic 20–98; PULSE 7–108; RESP 16–29; TEMP 36.3–36.8; O2SAT 94–100; BMI 14.3
--- NOTE | 2020-12-16 | ECHO_ITS ---
Patient Info Name: Shawnee Vides Age: 60 years : 1960 Gender: Female Ht: 66 in Wt: 88 lbs BSA: 1.34 m2 HR: 100 bpm BP: 93 / 89 mmHg Technical Quality: Fair Exam Date: 12/16/2020 12:37 PM Exam Location: [facility] Patient Status: Inpatient Admit Date: 12/15/2020 Staff Ordering Physician: Marco Antonio Vazquez MD Cra Officer: Bean Yoder RDCS, RT Attending Provider: Kings Lyon MD Exam Type: CA echo doppler color flow Study Info Indications R57.0 - Cardiogenic shock Complete two-dimensional, color flow and Doppler transthoracic echocardiogram is performed. Strain analysis performed. Summary 1. Complete two-dimensional, color flow and Doppler transthoracic echocardiogram is performed. 2. Tech note: TDS. Pt intubated and awake. Semicombative and altered mental status. Abdominal bandages from recent sx preclude subcostal and on-axis apical images. 3. Left ventricular chamber dimension is severely enlarged. 4. Left ventricular systolic function is severely reduced, estimated at 25-30%. 5. The left ventricular diastolic function is grade III diastolic dysfunction. 6. Left atrial chamber dimension is moderately enlarged. 7. There is mild aortic valve sclerosis. 8. There is trace aortic valve regurgitation. 9. The mitral valve has mildly calcified leaflets. 10. There is moderate mitral valve regurgitation. 11. There is trace tricuspid valve regurgitation. 12. No pulmonary hypertension, estimated pulmonary arterial systolic pressure is 36 mmHg. Left Ventricle Tech note: TDS. Pt intubated and awake. Semicombative and altered mental status. Abdominal bandages from recent sx preclude subcostal and on-axis apical images. E/e' from tissue doppler not measured. Left ventricular chamber dimension is severely enlarged. Left ventricular systolic function is severely reduced, estimated at 25-30%. The left ventricular diastolic function is grade III diastolic dysfunction. Right Ventricle Right ventricular chamber dimension is normal. Right ventricular systolic function is normal. Left Atria Left atrial chamber dimension is moderately enlarged. Right Atria Right atrial chamber dimension is normal. Aortic Valve The aortic valve is trileaflet. There is mild aortic valve sclerosis. There is no aortic valve stenosis. There is trace aortic valve regurgitation. Pulmonic Valve There is no pulmonic regurgitation. Mitral Valve The mitral valve has mildly calcified leaflets. There is no mitral valve stenosis. There is moderate mitral valve regurgitation. Tricuspid Valve There is trace tricuspid valve regurgitation. No pulmonary hypertension, estimated pulmonary arterial systolic pressure is 36 mmHg. Pericardium/Pleural There is trivial pericardial effusion. Inferior Vena Cava Inferior vena cava is not well visualized. Aorta The aortic root size at the sinus of Valsalva is normal. Left Ventricular Outflow Tract Name Value Normal LVOT 2D LVOT Diameter 2.0 cm LVOT Doppler LVOT Peak Gradient 1 mmHg LVOT Mean Gradient 1 mmHg
[2020-12-16] MEDS: LACTATED RINGERS 1,000 ML 150 ML IV CONT (00:36)
[2020-12-16] MEDS: NOREPINEPHRINE 8 MG/D5W 250 ML 8 MG/250 ML BAG 56.25 MG IV CONT (03:30)
[2020-12-16] MEDS: fentaNYL CITRATE INJ (*CRX) 100 MCG/2 ML VIAL 50 MCG IV PUSH ×2 (03:37→11:19)
--- NOTE | 2020-12-16 04:31 | P.OP_ITS ---
Procedures Central Line Placement Left SC: Central Line Date: 12/16/20 Central Line Time: 04:31 Performed Emergently - Given emergent patient condition, temporal constraints may have precluded informed consent.: Yes Time Out Performed: Yes Patient Position: supine Patient placed on monitor/pulse ox: Yes Provider Prep: mask, sterile gown, sterile gloves, Max. sterile barrier precautions, cap and hand hygiene with conventional soap/water or alcohol based hand rub Central line prep: 2% Chlorhexidine scrub and sterile full body sheet applied Local anesthesia used: lidocaine 1% Amount of anesthesia used (ml): 5 Central line lumen inserted: triple Upper Sorbian: 7 Post Procedure: sutured in place, good blood return, all ports aspirated, flushed, capped, transparent dressing, antimicrobial product and aseptic technique maintained throughout procedure Post procedure x-ray: tip of catheter in good position and no pneumothorax seen Patient tolerated procedure: well Complications: none
[2020-12-16 04:57] LABS: Hematocrit 31.1 % (37.0-47.0); Hemoglobin 10.1 g/dL (12.0-15.0); Mean Corpuscular HGB Conc 32.5 g/dl (32-36); Mean Corpuscular Hemoglobin 32.7 pg (26-34); Mean Corpuscular Volume 100.6 fl (80-100); Mean Platelet Volume 11.7 fl (7.4-10.4); Platelet Count Result 216 k/mm3 (150-375); Red Blood Count 3.09 M/mm3 (4.2-5.4); Red Cell Distribution Width 15.2 % (11.5-14.5); White Blood Count 21.7 K/mm3 (4.5-10.0)
[2020-12-16] MEDS: HYDROCORTISONE SODIUM SUCCINATE 100 MG/2 ML VIAL IV PUSH ×3 (05:02→21:10)
[2020-12-16] MEDS: CENTRAL LINE FLUSH 10 ML IV PUSH ×7 (05:03→21:11)
[2020-12-16] MEDS: PANTOPRAZOLE SODIUM IV 40 MG VIAL IV PUSH (05:03)
[2020-12-16 05:08] LABS: Lactic Acid Reflex 1.9 mmol/L (0.7-2.1)
[2020-12-16 05:09] LABS: Alanine Aminotransferase 20 U/L (4-35); Albumin Level 1.9 g/dL (3.5-5.1); Alkaline Phosphatase 32 U/L (38-126); Anion Gap 5 mmol/L (8-16); Aspartate Amino Transferase 39 U/L (14-36); Bilirubin,Total 1.1 mg/dL (0.2-1.3); Blood Urea Nitrogen 41 mg/dL (7-17); Calcium 7.7 mg/dL (8.4-10.2); Carbon Dioxide 19 mmol/L (22-30); Chloride 118 mmol/L (98-107); Estimated CRCL calculation 29 ml/min; Estimated Glomerular Filt Rate 46; Glucose 144 mg/dL (65-105); Magnesium 2.2 mg/dL (1.6-2.3); Phosphorus 4.2 mg/dL (2.5-4.5); Potassium 4.2 mmol/L (3.4-5.0); Sodium 142 mmol/L (137-145)
[2020-12-16 05:11] LABS: Alveolar/Arterial O2 Gradient 146.7 mmHg; Base Excess ABG -4.9 mEq/l (+/-2.0); Fractional Inspired Oxygen 40 %; HCO3 ABG 18.3 mEq/l (22.0-26.0); Oxygen Content ABG 14.9 %vol (16.0-22.0); Oxygen Saturation ABG 98.1 % (95.0-100.0); Oxyhemoglobin 96.8 % THb (90.0-100.0); PCO2 ABG 28.1 mmHg (35.0-45.0); PO2 ABG 106.2 mmHg (80.0-100.0); PO2 FiO2 Ratio Arterial Blood 2.65 %; Total Hemoglobin 10.8 g/dL (12.0-18.0); pH ABG 7.432 (7.350-7.450)
[2020-12-16 05:13] LABS: Device VENTILATOR; Site Drawn ARTLINE
[2020-12-16 05:14] LABS: Arterial Blood Gas PEEP 5 cmH2O; Arterial Blood Gas Tidal Volume 300 ml; Arterial Blood Gas Vent Mode CMV; Arterial Blood Gas Ventilator rate 18 /MIN
--- NOTE | 2020-12-16 06:31 | PC.NURSE ---
Followed up with Dr. Vazquez at approximately 2 pm on 12/15/2020 regarding orders and plan of care for patient. Clarifying ventilator changes to be made. Orders to change ventilator settings to CMV mode with a rate of 18, peep 5, tidal volume of 350 and 100% FiO2. Orders to obtain a blood gas 30 minutes after ventilator changes. ABG's resulted and discussed with physician. New orders to titrate FiO2 as tolerated and decrease tidal volumes to 300. Reported critical lactic at 4.5 with new orders to administer an 1000 ml bolus of normal saline 0.9%. Discussed blood pressure's with physician, orders to continue titrating Levophed and add Vasopressin at 0.04 mcg/min to maintain patients MAP. Addressed patients agitation level with Dr. Vazquez, New orders to administer 2mg IV push of versed then start a Precedex gtt to keep patient calm. Brought up Arterial line and poor wave form/function, as well as questionable Central line in the left IJ. Dr. Vazquez would like RN to reach out to Anesthesia who placed the line for further recommendation on both lines.
--- NOTE | 2020-12-16 06:46 | PC.NURSE ---
Call initiated to Dr. Acosta at approximately 2130 pm on 12/15/2020 to discuss central line and Arterial line. Physician reviewed imaging of central line and ensured that line is in proper placement to safely infuse medications. Both lines currently leaking small amounts of serosanguineous fluid. Physician gave the OK to continue using the line for Vasopressors. Dr. Vazquez called and updated on Dr. Mathew ok to use the line.
--- NOTE | 2020-12-16 06:50 | PC.NURSE ---
At 0204 am on 12/16/2020 this nurse initiated a call with Dr. Vazquez to further discuss the central line in place. Moderate amount of Serosanguineous fluid noted on bedding behind patient's line. Both Vasopressors are being administered through the central line without improvement in blood pressures. Line Does not appear to be in proper placement and seeking expert advice. Orders from Dr. Vazquez to administer Vasopressors through the patients peripheral line and reach out to hospitalist to trouble shoot the Central line.
--- NOTE | 2020-12-16 07:22 | PC.NURSE ---
At approximately 0215 A.M. The Hospitalist was contacted regarding the central line. Hospitalist stated that he is not authorized to do any invasive procedures but the E.R. Doctors have proper authorization to assess the line. This RN, contacted and spoke with both charge nurse and greenhouse superintendent for further instruction.
--- NOTE | 2020-12-16 07:22 | PC.NURSE ---
Dr. Vazquez contacted at approximately 0241 a.m. on 12/16/2020 to update on patient status. Central line is continuing to leak fluid back out and staff is unable to start an additional peripheral on patient. Blood pressures are continuing to remain low and hospitalist is unable to assess central line. Dr. Vazquez recommended staff to contact the ER physician to trouble shoot the Central line. Orders to continue running Vasopressors through peripheral IV access until Central line is patent.
--- NOTE | 2020-12-16 07:23 | PC.NURSE ---
t 0250 A.M. on 12/16/2020, The ER was contacted and dry house attendant spoke with Dr. Calvillo. Dr. Calvillo to see patient and address central line.
--- NOTE | 2020-12-16 07:25 | PC.NURSE ---
Dr. Calvillo seen patient at approximately 0330 A.M. to assess central line site. Physician to try and guide line back in. Dr. Calvillo has an unstable patient transfer in ER to address first then will come back to fix central line.
--- NOTE | 2020-12-16 07:27 | PC.NURSE ---
Dr. Calvillo arrived to the floor at 0400 a.m. and attempted to guide central line back into place without success. Physician then placed Left Subclavian central line instead. Consent obtained from patients spouse and line successfully placed.
[2020-12-16] MEDS: NOREPINEPHRINE 8 MG/D5W 250 ML 8 MG/250 ML BAG 54.38 MG IV CONT (07:45)
--- NOTE | 2020-12-16 07:45 | WPDANESPN ---
Anes - Prog Note Post-Op Date/Time: 12/16/20 07:45 Cardiovascular status: normal Respiratory status: normal Airway patency: baseline Mental status: baseline Post-Op hydration status: normal Vital Signs: Last Vital Signs Temp 36.7 C 12/16/20 04:00 Pulse 98 12/16/20 06:02 Resp 21 H 12/16/20 06:00 BP 97/91 L 12/16/20 06:02 Pulse Ox 100 12/16/20 06:00 Pain Score (VAS): 0 I/O: Intake & Output 12/15/20 12/15/20 12/16/20 15:59 23:59 07:59 Intake Total 2049 50 1855 Output Total 0 350 Balance 2049 50 1505 Laboratory Tests 12/16/20 04:38 12/16/20 04:38 12/15/20 12/15/20 12/15/20 09:35 09:35 09:35 WBC 9.3 RBC 4.65 Hgb 15.2 H Hct 47.1 H MCV 101.3 H MCH 32.7 MCHC 32.3 RDW 15.2 H Plt Count 336 MPV 11.3 H Immature Gran % (Auto) 0.2 Neut % (Auto) 90.3 H Lymph % (Auto) 4.3 L Falls % (Auto) 5.1 Eos % (Auto) 0.0 Baso % (Auto) 0.1 L Lymph # (Auto) 0.40 L Falls # (Auto) 0.5 Eos # (Auto) 0.0 Baso # (Auto) 0.0 Abs Immat Gran (auto) 0.02 Absolute Neuts (auto) 8.4 H Absolute Nucleated RBC 0.0 Nucleated RBC % 0.2 Puncture Site ABG pH ABG pCO2 ABG pO2 ABG PO2/FiO2 Ratio ABG HCO3 ABG O2 Saturation ABG O2 Content ABG Base Excess A-a Gradient Oxyhemoglobin Total Hemoglobin O2 Delivery Device O2 Liters/Min Minute Volume Vent Rate Vent Mode FiO2 Tidal Volume PEEP Peak Inspir Pressure Pressure Support Sodium Potassium Chloride Carbon Dioxide Anion Gap BUN Creatinine Estim Creat Clear Calc Estimated GFR Glucose Lactic Acid Calcium Phosphorus Magnesium Total Bilirubin Direct Bilirubin AST ALT Alkaline Phosphatase Total Protein Albumin Lipase 36 Urine Color Quin Urine Appearance Cloudy H Urine pH 5.0 Ur Specific [place] 1.027 Urine Protein 1+ H Urine Glucose (UA) Negative Urine Ketones Trace Ur Blood (Man) 1+ H Urine Nitrate Negative Urine Bilirubin Negative Urine Urobilinogen 4.0 H Leukocyte Esterase Rfl Negative Urine RBC 11-20 H Urine WBC 10-15 H Ur Squamous Epith Cells Few Urine Bacteria Trace Hyaline Casts 3-4 H Urine Mucus Few H 12/15/20 12/15/20 12/15/20 09:35 11:28 11:28 WBC RBC Hgb Hct MCV MCH MCHC RDW Plt Count MPV Immature Gran % (Auto) Neut % (Auto) Lymph % (Auto) Falls % (Auto) Eos % (Auto) Baso % (Auto) Lymph # (Auto) Falls # (Auto) Eos # (Auto) Baso # (Auto) Abs Immat Gran (auto) Absolute Neuts (auto) Absolute Nucleated RBC Nucleated RBC % Puncture Site ABG pH ABG pCO2 ABG pO2 ABG PO2/FiO2 Ratio ABG HCO3 ABG O2 Saturation ABG O2 Content ABG Base Excess A-a Gradient Oxyhemoglobin Total Hemoglobin O2 Delivery Device O2 Liters/Min Minute Volume Vent Rate Vent Mode FiO2 Tidal Volume PEEP Peak Inspir Pressure Pressure Support Sodium 148 H Potassium 3.5 Chloride 114 H Carbon Dioxide 26 Anion Gap 8 BUN 50 H Creatinine 1.00 Estim Creat Clear Calc 32 Estimated GFR 57 L Glucose 151 H Lactic Acid 2.2 H Calcium 9.2 Phosphorus 3.1 Magnesium 2.8 H Total Bilirubin 1.5 H Direct Bilirubin 0.0 AST 43 H ALT 27 Alkaline Phosphatase 82 Total Protein 7.0 Albumin 3.8 Lipase Urine Color Urine Appearance Urine pH Ur Specific [place] Urine Protein Urine Glucose (UA) Urine Ketones Ur Blood (Man) Urine Nitrate Urine Bilirubin Urine Urobilinogen Leukocyte Esterase Rfl Urine RBC Urine WBC Ur Squamous Epith Cells Urine Bacteria Hyaline Casts Urine Mucus 12/15/20 12/15/20 12/15/20 18:41 18:41 20:28 WBC RBC Hgb
--- NOTE | 2020-12-16 07:48 | PM.PNGS ---
Progress Note: A&P Assessment and Plan (1) Fecal peritonitis: Code(s): K65.8 - Other peritonitis Status: Acute Assessment and Plan: continue IV antibiotics. Drains intact. Source controlled. Out looked very poor (2) Septic shock due to undetermined organism: Code(s): A41.9 - Sepsis, unspecified organism; R65.21 - Severe sepsis with septic shock Status: Acute Assessment and Plan: remains on pressors with mechanical intubation. Making some urine. Continue critical care management. Prognosis poor. (3) Malnutrition: Qualifiers: Malnutrition type: protein-calorie malnutrition Protein-calorie malnutrition severity: severe Qualified Code(s): E43 - Unspecified severe protein-calorie malnutrition Code(s): E46 - Unspecified protein-calorie malnutrition Status: Chronic Assessment and Plan: BMI 14 prior to surgery. Also diminishes prognosis. Subjective Subjective Date/Time Seen: 12/16/20 07:48 Post Op day: 1 Patient reports: other ( Intubated sedated unable to get any history) Interval history: patient on 2 different vasopressor agents. Had to have new left subclavian central line placed last night as internal jugular line would not function. Art line still working. Remains on mechanical ventilator. Has been made do not resuscitate status. Did make 125 cc of urine through the night. Review of Systems Review of Systems: ROS unobtainable: Yes unobtainable due to endotracheal tube and unobtainable due to medical condition Exam Const: General: comfortable Nutritional Appearance: cachectic Orientation/consciousness: patient obtunded GI: Inspection: non-distended and incision ( Dressings dry and intact. Stoma dusky but viable) GI Palp: Yes Firmness to palpation present (GI) and Yes Tenderness to palpation present (GI) Auscultation: absent bowel sounds Objective Data Vital Signs Vital Signs: Vital Signs - 24 hr 12/15/20 08:56 12/15/20 09:00 12/15/20 10:34 Temperature 36.6 C Pulse Rate 108 H 105 H 98 Respiratory Rate 32 H 24 H Blood Pressure 98/80 L 124/80 Pulse Oximetry 96 100 12/15/20 12:12 12/15/20 13:06 12/15/20 13:39 Temperature 36.1 C L Pulse Rate 92 100 107 H Respiratory Rate 26 H 27 H 20 Blood Pressure 107/80 104/80 85/58 L Pulse Oximetry 99 96 95 12/15/20 17:05 12/15/20 17:41 12/15/20 17:45 Temperature Pulse Rate 120 H 126 H 124 H Respiratory Rate 20 Blood Pressure 101/92 H Pulse Oximetry 100 92 12/15/20 18:00 12/15/20 19:00 12/15/20 20:00 Temperature 36.4 C L Pulse Rate 127 H 124 H 128 H Respiratory Rate 16 24 H Blood Pressure 101/92 H 93/82 L 78/58 L Pulse Oximetry 100 97 12/15/20 20:30 12/15/20 21:21 12/15/20 21:22 Temperature Pulse Rate 127 H 121 H 120 H Respiratory Rate 25 H Blood Pressure 92/81 L 64/57 L Pulse Oximetry 12/15/20 21:26 12/15/20 21:45 12/15/20 21:54 Temperature Pulse Rate 120 H 118 H 113 H Respiratory Rate Blood Pressure 65/59 L 64/54 L 80/67 L Pulse Oximetry 12/15/20 22:00 12/15/20 22:05 12/15/20 22:10 Temperature Pulse Rate 113 H Respiratory Rate 22 H Blood Pressure 92/68 L 81/44 L 87/63 L Pulse Oximetry 100 12/15/20 23:00 12/15/20 23:10 12/16/20 00:00 Temperature 36.7 C Pulse Rate 108 H 106 H 108 H Respiratory Rate 20 19 Blood Pressure 73/54 L Pulse Oximetry 100 100 12/16/20 00:15 12/16/20 00:35 12/16/20 00:39 Temperature Pulse Rate 105 H 97 97 Respiratory Rate Blood Pressure 76/51 L 90/82 L 80/72 L Pulse Oximetry 12/16/20 01:00 12/16/20 01:45 12/16/20 02:00 Temperature Pulse Rate 103 H 106 H 106 H Respiratory Rate 23 H 27 H Blood Pressure 64/56 L 88/47 L Pulse Oximetry 98 12/16/20 02:12 12/16/20 03:00 12/16/20 03:19 Temperature Pulse Rate 102 H 103 H Respiratory Rate 29 H Blood Pressure 44/20 L Pulse Oximetry 100 12/16/20 03:30 12/16/20 04:00
[2020-12-16] MEDS: ENOXAPARIN 30 MG/0.3 ML SYRINGE SUB-Q (09:21)
[2020-12-16] MEDS: SODIUM BICARBONATE 8.4% 150 MEQ in WATER, STERILE FOR INJECTION 950 ML 75 MEQ IV CONT ×2 (09:43→21:14)
--- NOTE | 2020-12-16 10:55 | WPDCNINT ---
Assessment and Plan Assessment and plan (1) Septic shock due to undetermined organism: Code(s): A41.9 - Sepsis, unspecified organism; R65.21 - Severe sepsis with septic shock Status: Acute Assessment and Plan: Septic shock secondary to fecal peritonitis Culture sent and pending Continue empiric Zosyn Add fluconazole Continue Levophed and vasopressin Hydrocortisone Patient received IV fluid bolus and now on IV fluids Lactate has cleared Check echocardiogram (2) Acute respiratory failure: Code(s): J96.00 - Acute respiratory failure, unspecified whether with hypoxia or hypercapnia Status: Acute Assessment and Plan: Chest x-ray and ABG reviewed Decrease tidal volume to 300 and rate to 15 (3) YOANDY (acute kidney injury): Code(s): N17.9 - Acute kidney failure, unspecified Status: Acute Assessment and Plan: To hypovolemia and septic shock The abdomen pelvis did not show any hydronephrosis Continue IV fluids monitor urine output and electrolytes (4) Fecal peritonitis: Code(s): K65.8 - Other peritonitis Status: Acute Assessment and Plan: Status post ex lap and source control (5) Malnutrition: Qualifiers: Malnutrition type: protein-calorie malnutrition Protein-calorie malnutrition severity: severe Qualified Code(s): E43 - Unspecified severe protein-calorie malnutrition Code(s): E46 - Unspecified protein-calorie malnutrition Status: Chronic Assessment and Plan: BMI 14 prior to surgery. Start tube feeding as per surgery (6) Fecal impaction of colon: Code(s): K56.41 - Fecal impaction Status: Acute Assessment and Plan: Status post evacuation (7) Gastrostomy tube dysfunction: Code(s): K94.23 - Gastrostomy malfunction Status: Acute Assessment and Plan: Status post replacement Additional Plan DVT prophylaxis -Lovenox Stress ulcer prophylaxis -Protonix Nutrition -NPO Code Status -patient is DNR as per her 's request Her prognosis guarded due to poor baseline health condition and now with multiorgan Total Critical Care Time - 45minutes Due to a high probability of clinically significant, life threatening deterioration, the patient required my highest level of preparedness to intervene emergently and I personally spent this critical care time directly and personally managing the patient. This critical care time included obtaining a history; examining the patient; pulse oximetry; ordering and review of studies; arranging urgent treatment with development of a management plan; evaluation of patient's response to treatment; frequent reassessment; and discussions with other providers. It was exclusive of separately billable procedures and treating other patients and teaching time. Please see Assessment and Plan section and the rest of the note for further information on patient assessment and treatment [employer] Consult Note Consult date: 12/16/20 Time Seen: 08:20 HPI: Shawnee Vides is a 60 year old female who presented to ED yesterday per recommendation of her primary care doctor Dr. Sethi who she saw on Sunday patient has longstanding history of failure to thrive and disability. Patient at baseline iss malnourished and over the last week has only been eating very little but is taking her nutrition orally, patient typically has little activity, is a smoker and frequently stays at home with little activity is noted and drinks coffee pr her who is the primary historian. Her reported that patient has not had a bowel movement in over a week saw her primary care doctor had CAT scan had significant constipation on the CT imaging and dehydration and her blood work patient was sent home and continues to have inability to have a bowel movement and is now more weak. He denied any vomiting rectal bleeding melena. Patient has a PEG tube which has not been used in a long time. Patient
--- NOTE | 2020-12-16 11:32 | PCDIET ---
Nutrition Assessment Complete: Underweight related to inadequate oral intake as evidence by BMI of 14.3 Total intake will meet current estimated kcal and protein needs of 1000 kcals and 60g protein daily while on ventilator Goal: New goal established Pt current nutrition is NPO Nutrition recommendation: Initiate feedings with 24hrs of stable blood pressure support Last recorded weight is 40.3 kg. Additional Notes: If surgery approves, 48-72 hrs s/p frandy-colectomy, recommend initiation of enteral nutrition of Vital 1.2 at 10ml/hr, advancing 10ml q 6hrs to goal of 20ml/hr day one. If tolerated, recommend advancing to goal of 40ml/hr day two. If enteral nutrition not appropriate in that time frame due to complications, recommend starting TPN at 15ml/hr day one, increasing to goal of 30ml/hr day two to provide 1011 kcals and 38g protein, and 970ml of free water. Following feeding initiation, wt, BMs, labs daily.
[2020-12-16] MEDS: ALBUMIN HUMAN 25% 25 GM/100 ML 100 ML IVPB ×3 (11:56→23:19)
[2020-12-16] MEDS: FLUCONAZOLE 200 MG/NACL 100 ML 200 MG/100 ML BAG 100 MG IVPB (11:57)
[2020-12-16] MEDS: NOREPINEPHRINE 8 MG/D5W 250 ML 8 MG/250 ML BAG 46.88 MG IV CONT (12:29)
[2020-12-16] MEDS: dexmedeTOMIDine 400 MCG/100 ML 400 MCG/100 ML BAG 7.23 MCG IV CONT (17:22)
[2020-12-16] MEDS: NOREPINEPHRINE 8 MG/D5W 250 ML 8 MG/250 ML BAG 43.13 MG IV CONT (18:06)
[2020-12-17] VITALS (37 sets, daily range): BP systolic 88–135; BP diastolic 58–95; PULSE 86–117; RESP 15–28; TEMP 35.9–36.9; O2SAT 95–100
[2020-12-17] MEDS: NOREPINEPHRINE 8 MG/D5W 250 ML 8 MG/250 ML BAG 33.75 MG IV CONT (00:34)
[2020-12-17 04:22] LABS: Alveolar/Arterial O2 Gradient 105.6 mmHg; Base Excess ABG 0.2 mEq/l (+/-2.0); Carboxyhemoglobin 0.3 % THb (0-2.0); Fractional Inspired Oxygen 30 %; HCO3 ABG 22.5 mEq/l (22.0-26.0); Methemoglobin ABG 0.3 %THb (0-1.5); Oxygen Content ABG 10.3 %vol (16.0-22.0); Oxygen Saturation ABG 96.9 % (95.0-100.0); Oxyhemoglobin 94.9 % THb (90.0-100.0); PCO2 ABG 26.8 mmHg (35.0-45.0); PO2 ABG 76.8 mmHg (80.0-100.0); PO2 FiO2 Ratio Arterial Blood 2.56 %; Reduced Hemoglobin 4.5 %THb (0-5.0)
[2020-12-17 04:24] LABS: Modified Allen's Test Pass; Site Drawn RIGHT BRACHIAL; Total Hemoglobin 7.6 g/dL (12.0-18.0); pH ABG 7.541 (7.350-7.450)
[2020-12-17 04:25] LABS: Arterial Blood Gas Vent Mode CMV; Arterial Blood Gas Ventilator rate 15 /MIN; Device VENTILATOR
[2020-12-17 04:26] LABS: Arterial Blood Gas PEEP 5 cmH2O; Arterial Blood Gas Tidal Volume 300 ml
[2020-12-17 04:53] LABS: Mean Corpuscular HGB Conc 33.2 g/dl (32-36); Mean Corpuscular Volume 99.5 fl (80-100); Mean Platelet Volume 11.2 fl (7.4-10.4); Platelet Count Result 138 k/mm3 (150-375); Red Blood Count 2.09 M/mm3 (4.2-5.4); Red Cell Distribution Width 15.2 % (11.5-14.5); White Blood Count 14.6 K/mm3 (4.5-10.0)
[2020-12-17 05:05] LABS: Anion Gap 4 mmol/L (8-16); Blood Urea Nitrogen 35 mg/dL (7-17); Carbon Dioxide 29 mmol/L (22-30); Chloride 102 mmol/L (98-107); Estimated CRCL calculation 25 ml/min; Estimated Glomerular Filt Rate 38; Glucose 146 mg/dL (65-105); Potassium 3.7 mmol/L (3.4-5.0); Sodium 135 mmol/L (137-145)
[2020-12-17 05:13] LABS: Hematocrit 20.8 % (37.0-47.0); Hemoglobin 6.9 g/dL (12.0-15.0)
[2020-12-17 05:17] LABS: Band Neutrophils Percent 13 % (0-6); Lymphocytes Absolute Manual 0.58 K/mm3 (1.1-4.5); Monocytes Absolute Manual 0.29 K/mm3 (0.1-0.90); Monocytes Percent Manual 2 % (3-9); Neutrophils Absolute Manual 13.72 K/mm3 (1.7-7.2); Neutrophils Percent Manual 81 % (46-73); Total Cells Counted 100
[2020-12-17] MEDS: HYDROCORTISONE SODIUM SUCCINATE 100 MG/2 ML VIAL IV PUSH ×2 (05:29→13:47)
[2020-12-17] MEDS: CENTRAL LINE FLUSH 10 ML IV PUSH ×6 (05:29→18:54)
[2020-12-17] MEDS: ALBUMIN HUMAN 25% 25 GM/100 ML 100 ML IVPB ×3 (05:30→18:53)
[2020-12-17] MEDS: dexmedeTOMIDine 400 MCG/100 ML 400 MCG/100 ML BAG 7.23 MCG IV CONT (05:41)
--- NOTE | 2020-12-17 07:52 | PM.PNGS ---
Progress Note: A&P Assessment and Plan (1) Fecal peritonitis: Code(s): K65.8 - Other peritonitis Status: Acute Assessment and Plan: continue IV antibiotics. Drains intact. Source controlled. outlook poor although she is holding her own at this point. (2) Septic shock due to undetermined organism: Code(s): A41.9 - Sepsis, unspecified organism; R65.21 - Severe sepsis with septic shock Status: Acute Assessment and Plan: remains on pressors with mechanical intubation. Making some urine. Continue critical care management. Levophed has been able to be weaned. Still on high dose of vasopressin. H&H decreased today, does not appear to be bleeding. Agree with transfusion. (3) Malnutrition: Qualifiers: Malnutrition type: protein-calorie malnutrition Protein-calorie malnutrition severity: severe Qualified Code(s): E43 - Unspecified severe protein-calorie malnutrition Code(s): E46 - Unspecified protein-calorie malnutrition Status: Chronic Assessment and Plan: BMI 14 prior to surgery. Also diminishes prognosis. Recommend either starting TPN or tube feedings per gastrostomy tube. Subjective Subjective Date/Time Seen: 12/17/20 07:52 Post Op day: 2 Patient reports: other ( Patient remains on mechanical ventilator, no history.) Interval history: Patient moving head and clearly awakens while on ventilator. She is on a lower dose of Levophed but still on a lot of vasopressin. H&H was quite a bit lower this morning than it was yesterday. No evidence of active bleeding. Holding her own to slightly improving. Review of Systems Review of Systems: ROS unobtainable: Yes unobtainable due to endotracheal tube Exam Const: General: alert and other ( Intubated on ventilator) Nutritional Appearance: malnourished GI: Inspection: incision ( Open wound pale and dry, redressed. Colostomy working well.), scaphoid and other ( Serosanguineous fluid in NEEL drains. G-tube capped and looks to be ok.) GI Palp: Yes Firmness to palpation present (GI) and Yes Tenderness to palpation present (GI) Auscultation: absent bowel sounds Objective Data Vital Signs Vital Signs: Vital Signs - 24 hr 12/16/20 07:56 12/16/20 08:00 12/16/20 10:00 Temperature 36.4 C Pulse Rate 84 97 89 Respiratory Rate 17 16 Blood Pressure 93/67 L 108/77 Pulse Oximetry 100 100 100 12/16/20 10:45 12/16/20 11:22 12/16/20 12:00 Temperature 36.5 C Pulse Rate 82 92 101 H Respiratory Rate 25 H Blood Pressure 110/80 103/95 H Pulse Oximetry 100 100 12/16/20 12:29 12/16/20 12:31 12/16/20 13:39 Temperature Pulse Rate 101 H 98 91 Respiratory Rate 24 H Blood Pressure 96/91 L Pulse Oximetry 95 12/16/20 14:00 12/16/20 14:37 12/16/20 16:00 Temperature 36.8 C Pulse Rate 89 7 L 94 Respiratory Rate 18 19 Blood Pressure 101/85 102/84 99/84 L Pulse Oximetry 97 100 12/16/20 17:22 12/16/20 17:33 12/16/20 18:00 Temperature Pulse Rate 94 86 90 Respiratory Rate 20 20 Blood Pressure 119/90 Pulse Oximetry 98 94 12/16/20 18:06 12/16/20 20:00 12/16/20 20:29 Temperature 36.7 C Pulse Rate 89 81 81 Respiratory Rate 21 H Blood Pressure 124/72 128/89 Pulse Oximetry 100 100 12/16/20 22:00 12/16/20 22:30 12/16/20 23:30 Temperature Pulse Rate 78 81 87 Respiratory Rate 23 H Blood Pressure 122/80 124/82 117/89 Pulse Oximetry 100 12/16/20 23:40 12/17/20 00:00 12/17/20 00:34 Temperature 36.6 C Pulse Rate 83 98 102 H Respiratory Rate 24 H Blood Pressure 123/80 113/81 Pulse Oximetry 100 100 12/17/20 01:30 12/17/20 02:00 12/17/20 02:45 Temperature Pulse Rate 92 92 92 Respiratory Rate 19 Blood Pressure 128/82 127/84 Pulse Oximetry 100 100 12/17/20 03:00 12/17/20 04:00 12/17/20 04:12 Temperature 36.5 C Pulse Rate 91 94 91 Respiratory Rate 18 Blood Pressure 135/95 H 131/87 Pulse Oximetry 100 100
[2020-12-17] MEDS: fentaNYL CITRATE INJ (*CRX) 100 MCG/2 ML VIAL 25 MCG IV PUSH (08:19)
[2020-12-17] MEDS: FLUCONAZOLE 200 MG/NACL 100 ML 200 MG/100 ML BAG 100 MG IVPB (09:07)
[2020-12-17] MEDS: PANTOPRAZOLE SODIUM IV 40 MG VIAL IV PUSH (09:07)
[2020-12-17] MEDS: LACTATED RINGERS 1,000 ML 50 ML IV CONT (09:08)
--- NOTE | 2020-12-17 09:47 | WPDINTPN ---
Progress Note: A&P Assessment and Plan (1) Septic shock due to undetermined organism: Code(s): A41.9 - Sepsis, unspecified organism; R65.21 - Severe sepsis with septic shock Status: Acute Assessment and Plan: Septic shock secondary to fecal peritonitis. Also compounded with hypovolemia from blood loss and anemia and may have cardiogenic component if patient's EF is low Culture sent and pending Continue empiric Zosyn and fluconazole Continue Levophed and vasopressin Continue Hydrocortisone Patient received IV fluid bolus and now on IV fluids. Change to LR at lower rate Lactate has cleared Reviewed echocardiogram Transfuse 1 unit of packed red cells Requested nurse to remove right femoral arterial sheath using precautions used to remove post cardiac catheterization femoral sheaths (2) Acute respiratory failure: Code(s): J96.00 - Acute respiratory failure, unspecified whether with hypoxia or hypercapnia Status: Acute Assessment and Plan: Chest x-ray and ABG reviewed Patient switched to ASV mode Will evaluate breathing trial later today (3) YOANDY (acute kidney injury): Code(s): N17.9 - Acute kidney failure, unspecified Status: Acute Assessment and Plan: To hypovolemia and septic shock The abdomen pelvis did not show any hydronephrosis Continue IV fluids monitor urine output and electrolytes (4) Fecal peritonitis: Code(s): K65.8 - Other peritonitis Status: Acute Assessment and Plan: Status post ex lap and source control Surgical incision site was reviewed by Dr. auguste today (5) Malnutrition: Qualifiers: Malnutrition type: protein-calorie malnutrition Protein-calorie malnutrition severity: severe Qualified Code(s): E43 - Unspecified severe protein-calorie malnutrition Code(s): E46 - Unspecified protein-calorie malnutrition Status: Chronic Assessment and Plan: BMI 14 prior to surgery. Start tube feeding as per surgery (6) Fecal impaction of colon: Code(s): K56.41 - Fecal impaction Status: Acute Assessment and Plan: Status post evacuation (7) Gastrostomy tube dysfunction: Code(s): K94.23 - Gastrostomy malfunction Status: Acute Assessment and Plan: Status post replacement (8) Anemia: Code(s): D64.9 - Anemia, unspecified Status: Acute Assessment and Plan: Hemoglobin dropped to 6.9 this morning Serosanguineous output from NEEL drains Will transfuse 2 units of packed red cells and monitor serial Continue PPI Hold Lovenox Remove femoral sheath (9) CHF (congestive heart failure): Code(s): I50.9 - Heart failure, unspecified Status: Acute Assessment and Plan: ECHO showed enlarged LV and severe systolic dysfunction. Decrease IV fluid rate at this time Summary 1. Complete two-dimensional, color flow and Doppler transthoracic echocardiogram is performed. 2. Tech note: TDS. Pt intubated and awake. Semicombative and altered mental status. Abdominal bandages from recent sx preclude subcostal and on-axis apical images. 3. Left ventricular chamber dimension is severely enlarged. 4. Left ventricular systolic function is severely reduced, estimated at 25-30%. 5. The left ventricular diastolic function is grade III diastolic dysfunction. 6. Left atrial chamber dimension is moderately enlarged. 7. There is mild aortic valve sclerosis. 8. There is trace aortic valve regurgitation. 9. The mitral valve has mildly calcified leaflets. 10. There is moderate mitral valve regurgitation. 11. There is trace tricuspid valve regurgitation. 12. No pulmonary hypertension, estimated pulmonary arterial systolic pressure is 36 mmHg. Additional Plan DVT prophylaxis -SCDs Stress ulcer prophylaxis -Protonix Nutrition -NPO Code Status -patient is DNR as per her 's request Her prognosis guarded due to poor baseline health condition and now with m
[2020-12-17] MEDS: NOREPINEPHRINE 8 MG/D5W 250 ML 8 MG/250 ML BAG 18.75 MG IV CONT (10:09)
--- NOTE | 2020-12-17 11:06 | PCDIET ---
Nutrition Follow-Up Complete: Underweight related to inadequate oral intake as evidence by BMI of 14.3 Total intake will meet current estimated kcal and protein needs of 1000 kcals and 60g protein daily while on ventilator Goal: Progressing towards goal. Continue goal. Pt current nutrition is Vital 1.2 at 20ml/hr Nutrition recommendation: Agree; Recommend PO4 lab Last recorded weight is 45.4 kg, up from 40.3kg on assessment (+699.4 I/O) Bowel Motility: colostomy Labs Reviewed:WBC up to 14.6 from 10.1 yesterday; Na 135, GFR 38, BUN 35, Glucose 146, Cr 1.40 Meds Noted:Fentanyl, Zosyn, Vasopressin, Diflucan, LR's, Norepinephrine, Protonix Additional Notes: Pt is POD#3. Vital 1.2 starting at 20ml/hr today. Pt at high risk for refeeding syndrome 2/2 to poor intake prior to admit and low BMI. Recommend PO4 lab to track feeding response day one. Recommend monitoring glucose, Na as well. If great shifts in these labs, recommend reducing Vital 1.2 to 10ml/hr day two and working to meet goal of 40ml/hr over 48-72 hours. If electrolytes remain stable day two, recommend advancing 10ml q 6hrs to goal of 40ml/hr on day two to provide 1056 kcals, 66g protein, and 713ml of free water. Recommend water flush of 30ml q 4hrs while LR's are running. Prior to admission, pt was eating 1 piece of khmer toast in the am, soup for lunch, and meat for dinner. She had stopped eating starch and veggies. They were also using one ensure a day via the peg tube, which was placed last February, but had not been doing so in the last month because there was oozing around the peg site. We will continue to follow feeding tolerance, wt, BMs, and labs in ICU rounds and reassess every t/f.
[2020-12-17 14:53] LABS: Hematocrit 30.3 % (37.0-47.0); Immature Platelet Fraction Pct 9.2 % (0.9-11.2); Mean Corpuscular HGB Conc 32.7 g/dl (32-36); Mean Corpuscular Hemoglobin 29.8 pg (26-34); Mean Corpuscular Volume 91.3 fl (80-100); Platelet Count Result 127 k/mm3 (150-375); Red Blood Count 3.32 M/mm3 (4.2-5.4); Red Cell Distribution Width 19.9 % (11.5-14.5); White Blood Count 14.7 K/mm3 (4.5-10.0)
--- NOTE | 2020-12-17 14:56 | PM.EVENT ---
Event Note Event Note Event Note: Called by nurse to evaluate patient. Right leg significantly mottled and cold. Although patient has both legs that are cold suggestive of peripheral arterial disease, right looks worse as compared to left. Leg is cold below lower thigh. Dorsalis pedis is very feebly palpable on the right side. Patient had a femoral sheath inserted in the surgery for blood pressure monitoring. This morning when I saw the patient I was told by the nursing staff that it had stopped working overnight was not drawing blood or showing accurate waveform. At that time, on my request the femoral sheath was removed this morning by the nurse. At that time patient had minimal mottling around her lower thigh above knee but at this time, it appears significantly worse. Patient continues to be on Levophed and vasopressin infusion. She is also on IV fluids concerns of pulmonary edema as patient has congestive heart failure and systolic dysfunction with EF of 20-25% Patient did receive 2 units of packed red cells this morning and repeat hemoglobin is pending. Will send patient for stat CTA of right leg and will also do CT abdomen pelvis without contrast. Check CK and LA. Also paged Dr. Lyon to discuss.
[2020-12-17 15:09] LABS: Hemoglobin 9.9 g/dL (12.0-15.0)
[2020-12-17 15:25] LABS: Lactic Acid Reflex 5.1 mmol/L (0.7-2.1)
[2020-12-17 15:49] LABS: Creatine Kinase 4127 U/L (30-135)
[2020-12-17] MEDS: SODIUM CHLORIDE 0.9% IV 1,000 ML 999 ML IV CONT (16:02)
[2020-12-17] MEDS: HEPARIN SOD/D5W 100 UNITS/ML 25,000 UNITS/250 ML BAG 8 UNITS IV CONT (16:22)
--- NOTE | 2020-12-17 16:26 | P.PNCROSS_ITS ---
Event Note Event Note Event Note: CT a right leg images were reviewed with radiology. 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 Case discussed with Dr. Kline regarding any possible in vascular intervention. He recommended starting heparin infusion and believes the patient had thrombus in a aneurysm which showered down and occluded artery. There is lot of calcification throughout the vasculature and stenosis of infrarenal aorta, iliac artery internal iliac artery and patient has infrarenal abdominal aortic aneurysm. He believes that clot shower was likely the cause of blocking the arterial sheath making you to stop last night. He also recommended ultrasound arterial ankle brachial index. Spoke to Dr. Lyon who is patient's admitting physician and performed the initial surgery. He he does not recommend any intervention to be performed here and and due to patient's complicated picture, recommended that patient should be transferred to tertiary facility for vascular surgery evaluation and neurosurgery evaluation (for suspected contamination of the patient). I have called transfer line at both [facility] and [facility] and given patient's information and waiting for call back. Meanwhile heparin infusion ordered. Also 1 L saline bolus and will increase IV fluids at this time due to rhabdomyolysis
[2020-12-17] MEDS: SODIUM BICARBONATE 8.4% 50 MEQ/50 ML SYRINGE 100 MEQ IV PUSH (17:02)
--- NOTE | 2020-12-17 17:08 | P.PNCROSS_ITS ---
Event Note Event Note Event Note: Spoke to Dr. Box with vascular surgery at [facility] and discuss case. He told me that patient has overall poor prognosis, may lose her leg despite all the intervention and has high risk of mortality but they will accept the patient. I spoke to patient's was agreeable to transfer and understands the risk of limb loss and/or . Spoke to Dr. Cotton with medical ICU at [facility] and discuss case. She has accepted the patient on behalf of Dr. Méndez. Will transfer once bed is available. Meanwhile continue vasopressors, 2 amps of bicarb given, check ABG Additional Critical Care Time time spent initial evaluation in the morning in coordinating care, discussing with patient family and consultants. - 120 minutes Due to a high probability of clinically significant, life threatening deterioration, the patient required my highest level of preparedness to intervene emergently and I personally spent this critical care time directly and personally managing the patient. This critical care time included obtaining a history; examining the patient; pulse oximetry; ordering and review of studies; arranging urgent treatment with development of a management plan; evaluation of patient's response to treatment; frequent reassessment; and discussions with other providers. It was exclusive of separately billable procedures and treating other patients and teaching time. Please see Assessment and Plan section and the rest of the note for further information on patient assessment and treatment
[2020-12-17] MEDS: MIDAZOLAM HCL (*CRX) 2 MG/2 ML VIAL (17:30)
--- NOTE | 2020-12-17 17:51 | P.PCNBED_ITS ---
Procedures Arterial Line Arterial Line Date: 12/17/20 Arterial Line Time: 17:30 Discussed with the patient/family/POA, the placement of an arterial catheter, including its clinical necessity/indication and associated potential risks, benefits and alternatives.: Yes Patient/family/POA and/or understands and acknowledges the need to proceed with the arterial catheter insertion as an important element of the patient's clinical management.: Yes Time Out Performed: Yes Patient Position: supine [employer]ing Software Specialist Prep: sterile gown, sterile gloves and mask Site: left and femoral Site Prep: chlorhexidine Technique used: ultrasound-guided Length: 12 cm Closure/Dressing: suture, transparent dressing and securement product Patient tolerated procedure: well Complications: none
--- NOTE | 2020-12-17 17:52 | PM.EVENT ---
Event Note Event Note Event Note: We were unable to get any good blood pressure with noninvasive monitoring. I discussed with patient's and explained the risks and benefits of doing a arterial line including accurate blood pressure monitoring and frequent ABGs. I explained him the risks including bleeding infection and again in damage to the blood supply to the leg on the other side. He verbalized understanding of the risks and consented for the procedure. Left femoral arterial line placed without any complications and did show significant difference in blood pressure as compared to noninvasive monitoring. Received call back from [facility] and they will not be able to take patient in timely fashion due to lack of beds and large number of patients already waiting. I have updated patient's at bedside
[2020-12-17 17:56] LABS: Alveolar/Arterial O2 Gradient 242.7 mmHg; Base Excess ABG -8.5 mEq/l (+/-2.0); Fractional Inspired Oxygen 100 %; HCO3 ABG 15.4 mEq/l (22.0-26.0); Oxygen Content ABG 15.7 %vol (16.0-22.0); Oxygen Saturation ABG 99.8 % (95.0-100.0); Oxyhemoglobin 97.8 % THb (90.0-100.0); PCO2 ABG 26.8 mmHg (35.0-45.0); PO2 ABG 443.5 mmHg (80.0-100.0); PO2 FiO2 Ratio Arterial Blood 4.43 %; Total Hemoglobin 10.5 g/dL (12.0-18.0); pH ABG 7.377 (7.350-7.450)
[2020-12-17 17:57] LABS: Device VENTILATOR; Modified Allen's Test Pass; Site Drawn LEFT FEMORAL
[2020-12-17 17:58] LABS: Arterial Blood Gas PEEP 5 cmH2O; Arterial Blood Gas Tidal Volume 300 ml; Arterial Blood Gas Vent Mode CMV; Arterial Blood Gas Ventilator rate 15 /MIN
[2020-12-17 18:11] LABS: Reflex Lactic Acid Yes or No Add Lactic
--- NOTE | 2020-12-17 19:01 | PC.NURSE ---
Pt's right leg mottled and no palpable pulse on foot at 1530 for rounding. MD notified. Sent to ct. BP unobtainable in pts arms at 1630. placed art line. Levo titrated per md verbal order after artline placed to 12mcg.
--- NOTE | 2020-12-17 20:14 | PC.NURSE ---
This patient, Shawnee Vides, was transferred to [ [facility]] on 12/17/20 at 2015. Personal belongings sent with patient. PT transport by [facility]. Report given to [ Salty milton]. Appropriate documentation sent with patient.
--- NOTE | 2021-01-12 17:33 | PM.DS ---
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 COPD smoker DS: Discharge Diagnosis Discharge Diagnosis (1) Septic shock due to undetermined organism: Code(s): A41.9 - Sepsis, unspecified organism; R65.21 - Severe sepsis with septic shock Status: Acute (2) Acute occlusion of aortoiliac artery: Code(s): I74.09 - Other arterial embolism and thrombosis of abdominal aorta Status: Acute (3) Fecal peritonitis: Code(s): K65.8 - Other peritonitis Status: Acute (4) Malnutrition: Qualifiers: Malnutrition type: protein-calorie malnutrition Protein-calorie malnutrition severity: severe Qualified Code(s): E43 - Unspecified severe protein-calorie malnutrition Code(s): E46 - Unspecified protein-calorie malnutrition Status: Chronic DS: Summary Hospital Course Hospital Course: patient is a 60-year-old woman with cognitive impairment and failure to thrive for quite some time. She had been hospitalized for this and in fact a gastrostomy tube admit placed. She had a history of an intracranial aneurysm which bled and required clipping. Since that time her mental status had not been the same and she had poor eating habits despite admissions at other hospitals to improve this. She had a gastrostomy tube placed as well but this was not functioning at the time she came to [facility]. The patient presented at [facility] with severe abdominal pain on the day of admission 12/15/2020. She had a huge mass in her abdomen with evidence of an acute abdomen and sepsis. CT scanning showed this mass to be a huge fecal impaction. There was evidence of bowel perforation as well. While in the operating room being prepared for surgery, patient suffered cardiopulmonary arrest. She was resuscitated and was marginally stable. Feeling that the situation was hopeless without laparotomy and control of the sepsis, we did go ahead and proceed with the operation. She had left colectomy with end descending colostomy as well as evacuation of a massive fecal impaction. Her gastrostomy tube was removed. A right femoral arterial line was placed as we were unable to place a line in her upper extremities. Following surgery she was taken to the intensive care unit. She received critical care management for septic shock due to gram-negative organisms, fecal peritonitis, and was on vasopressors with mechanical ventilation. Patient remained critically ill postop day 1. And 2. In the afternoon of postop day 2. , 12/17/2020 she developed a cold mottled right lower extremity. Her exam findings were consistent with acute iliac artery occlusion likely due to the right femoral arterial catheter. After discussion with the header dock, it was felt patient would need vascular surgery evaluation and possibly treatment although her overall prognosis was extremely poor. She was transferred to [facility]. She was critically ill with very poor prognosis. She was started on heparin drip prior to transfer. Status at Discharge Functional status at discharge: bed bound Time Spent with Patient Time attestation: Total time spent providing and/or coordinating discharge services: DS: Data Data Completed and Pending Completed studies during hospitalization: Pending at discharge 12/15/20 15:53 Surgical [PTH] Routine Discharge Plan Discharge Attending physician on discharge: Kings Lyon Consulting providers: Marco Antonio Vazquez ; Jay Parikh ; Bailee Rooney ; Sanya Calvillo ; Ruben Weinberg ; Mikel Frost ; Eyad Shelton ; Humza Gonzales V. Discharging Clinician: Marco Antonio Vazquez Anticipated Discharge Date/Time: 12/17/20 20:00 Patient Disposition: Acute Care Ho
--- NOTE | 2021-01-13 15:44 | PM.TDS ---
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 COPD smoker DS: Discharge Diagnosis Discharge Diagnosis (1) Septic shock due to undetermined organism: Code(s): A41.9 - Sepsis, unspecified organism; R65.21 - Severe sepsis with septic shock Status: Acute (2) Fecal peritonitis: Code(s): K65.8 - Other peritonitis Status: Acute (3) Acute occlusion of aortoiliac artery: Code(s): I74.09 - Other arterial embolism and thrombosis of abdominal aorta Status: Acute (4) Malnutrition: Qualifiers: Malnutrition type: protein-calorie malnutrition Protein-calorie malnutrition severity: severe Qualified Code(s): E43 - Unspecified severe protein-calorie malnutrition Code(s): E46 - Unspecified protein-calorie malnutrition Status: Chronic Transfer Discharge Sum: Med Medications Active and Home Medications: Home Medications fluconazole 100 mg PO DAILY 02/28/20 [History Confirmed 02/28/20] albuterol sulfate [Proventil HFA] 8 puff INHALATION QID #6.7 gm 03/01/20 [Rx] docusate sodium 100 mg PO DAILY #10 cap 03/01/20 [Rx] duloxetine [Cymbalta] 20 mg PO QAM #10 cap 03/01/20 [Rx] enoxaparin 30 mg SUBCUT DAILY #10 ml 03/01/20 [Rx] levofloxacin in D5W 750 mg IV Q48HR #10 ml 03/01/20 [Rx] lorazepam 0.5 mg IVPUSH Q6H PRN #10 ml 03/01/20 [Rx] megestrol 40 mg PO QID #10 tablet 03/01/20 [Rx] methylprednisolone sodium succ 125 mg IVPUSH Q6H #10 ea 03/01/20 [Rx] nicotine [Nicoderm CQ] 1 patch TRANSDERMAL HS #10 ea 03/01/20 [Rx] nystatin 5 ml PO QID #10 ml 03/01/20 [Rx] pantoprazole [Protonix] 40 mg IVPUSH ONCE #1 each 03/01/20 [Rx] sennosides-docusate sodium [Senokot-S] 1 tab PO HS #10 tablet 03/01/20 [Rx] tiotropium bromide [Spiriva with HandiHaler] 1 cap INHALATION QAM #10 inh 03/01/20 [Rx] Transfer Discharge Sum: Hosp Hospital Course Hospital course: Shwanee Vides is a 60 year old female Hospital Course: patient is a 60-year-old woman with cognitive impairment and failure to thrive for quite some time. She had been hospitalized for this and in fact a gastrostomy tube admit placed. She had a history of an intracranial aneurysm which bled and required clipping. Since that time her mental status had not been the same and she had poor eating habits despite admissions at other hospitals to improve this. She had a gastrostomy tube placed as well but this was not functioning at the time she came to [facility]. The patient presented at [facility] with severe abdominal pain on the day of admission 12/15/2020. She had a huge mass in her abdomen with evidence of an acute abdomen and sepsis. CT scanning showed this mass to be a huge fecal impaction. There was evidence of bowel perforation as well. While in the operating room being prepared for surgery, patient suffered cardiopulmonary arrest. She was resuscitated and was marginally stable. Feeling that the situation was hopeless without laparotomy and control of the sepsis, we did go ahead and proceed with the operation. She had left colectomy with end descending colostomy as well as evacuation of a massive fecal impaction. Her gastrostomy tube was removed. A right femoral arterial line was placed as we were unable to place a line in her upper extremities. Following surgery she was taken to the intensive care unit. She received critical care management for septic shock due to gram-nega
== END 2020-12-17 20:16 | disposition short-term general hospital (02) | DRG 853 ==
LOC: ANHED 12:16 → ANHSURGERY 12:18 → ANHICU 17:33
PROVIDERS: Emergency Medicine Emergency Medical Services; Internal Medicine; Admitting Provider Surgery; Emergency Provider Emergency Medicine; PCP Internal Medicine; Visit Provider Surgery
PROC: 0DBG0ZZ Excision of Left Large Intestine, Open Approach (ICD-10-PCS; CPT 44143; principal; 2020-12-15 14:00)
DX: A41.9 Sepsis, unspecified organism (principal); J96.00 Acute respiratory failure, unspecified whether with hypoxia or hypercapnia; R65.21 Severe sepsis with septic shock; K65.8 Other peritonitis; E43 Unspecified severe protein-calorie malnutrition; I46.9 Cardiac arrest, cause unspecified; I50.21 Acute systolic (congestive) heart failure; N17.9 Acute kidney failure, unspecified; Z68.1 Body mass index [BMI] 19.9 or less, adult; K94.23 Gastrostomy malfunction; I74.5 Embolism and thrombosis of iliac artery; T82.818A Embolism due to vascular prosthetic devices, implants and grafts, initial encounter; D62 Acute posthemorrhagic anemia; K56.41 Fecal impaction; J44.9 Chronic obstructive pulmonary disease, unspecified; F17.210 Nicotine dependence, cigarettes, uncomplicated; E86.0 Dehydration; K59.09 Other constipation; R62.7 Adult failure to thrive; Z66 Do not resuscitate; I69.219 Unspecified symptoms and signs involving cognitive functions following other nontraumatic intracranial hemorrhage; Z98.2 Presence of cerebrospinal fluid drainage device
CPT/HCPCS: 36415; 36430; 36600; 70450; 71045; 73706; 74176; 74177; 80048; 80053; 80076; 81001; 82375; 82550; 82805; 83050; 83605; 83690; 83735; 84100; 85025; 85027; 85055; 86850; 86900; 86901; 86920; 87040; 87086; 88307; 93005; 93306; 93922; 94002; 94003; 96361; 96365; 96375; 99285; A9270; C1713; C1729; C1751; C9113; J0171; J1170; J1450; J1644; J1650; J1720; J2001; J2250; J2370; J2543; J2704; J3010; J7030; J7060; J7120; P9016; P9047; Q9967